=== PATIENT | female | born 1975 | race Caucasian/White ===

== ENCOUNTER → 2016-09-11 | Outpatient (CLI) | payer OTHER ==
[~2016-09-11] MED LIST: ATEN-175 PO; HYDR-5688 PO; IBUP-1450 PO; LISI40TA PO; PANT40TA PO; PENI-82 PO; RANI150T3 PO
--- NOTE | 2016-09-16 16:44 | MAMMOGRAPHY REPORT ---
THIS REPORT HAS BEEN AMENDED. BILATERAL DIGITAL SCREENING MAMMOGRAM TOMOSYNTHESIS WITH CAD: 09/11/2016 CLINICAL HISTORY: Routine screening examination. TECHNIQUE: Bilateral breast tomosynthesis in addition to standard 2D mammography was performed. Curr ent study was also evaluated with a Computer Aided Detection (CAD) system. COMPARISON: No prior exams were available for comparison. BREAST COMPOSITION: There are scattered areas of fibroglandular density in both breasts. FINDINGS: There is a 9 mm lobulated and circumscribed mass in the superior posterior right breast, only seen on the MLO view. Although this could represent a benign cyst or lymph node, comparison to prior outside mammograms would be useful to assess stability. If the outside exams are not obtaine d in a timely manner, additional spot compression tomosynthesis, exaggerated lateral CC views and po ssibly ultrasound are recommended. There are scattered benign-appearing round microcalcifications in the breasts. No other suspicious m ass, architectural distortion or cluster of microcalcifications is seen. IMPRESSION: ACR BI-RADS CATEGORY 0: INCOMPLETE EVALUATION: NEED ADDITIONAL IMAGING EVALUATION The 9 mm lobulated and circumscribed mass in the superior posterior right breast needs comparison to prior outside mammograms to assess stability. If the outside exams are not obtained in a timely ma nner, additional spot compression tomosynthesis, exaggerated lateral CC views and possibly breast ul trasound are recommended. The patient will be called to schedule an appointment. Approximately 10% of breast cancers are not detected with mammography. A negative mammographic repor t should not delay biopsy if a clinically suggestive mass is present. Julissa Flaherty M.D. ay/:09/16/2016 15:53:48 Brazer Electronic: Berta Arango RT(Epifanio)(M), [facility] letter sent: Need Priors 0 BI-RADS Code: ACR BI-RADS Category 0: Incomplete Evaluation: Need Additional Imaging Evaluation AMENDMENT: 10/09/2016 Julissa Flaherty M.D. A prior outside mammogram from [facility] in [place] dated 09/26/2015 became available for re view. The 9 mm lobulated and circumscribed mass in the superior posterior right breast, only seen o n the MLO view is new compared to the prior outside mammogram from last year. This is not clearly s een on the CC view. Additional spot compression tomosynthesis, exaggerated lateral right CC views a nd possibly ultrasound are recommended for further evaluation. No other significant interval change is seen bilaterally in the breasts. Amended BI-RADS: ACR BI-RADS Category 0: Incomplete Evaluation: Need Additional Imaging Evaluation letter sent: Addl Imaging 0
== END | disposition home or self-care (01) ==
LOC: C.MAMM 10:32
PROVIDERS: ATTEND Obstetrics & Gynecology
DX: Z12.31 Encounter for screening mammogram for malignant neoplasm of breast (principal); N63 Unspecified lump in breast

== ENCOUNTER → 2016-09-25 | Outpatient (CLI) | payer OTHER | END | disposition home or self-care (01) | LOC: C.PATHSPEC 11:58 | PROVIDERS: ATTEND Obstetrics & Gynecology | DX: R93.8 Abnormal findings on diagnostic imaging of other specified body structures (principal) ==

== ENCOUNTER → 2016-10-17 | Outpatient (CLI) | payer OTHER ==
--- NOTE | 2016-10-17 13:16 | MAMMOGRAPHY REPORT ---
UNILATERAL RIGHT DIGITAL DIAGNOSTIC MAMMOGRAM TOMOSYNTHESIS AND TARGETED RIGHT ULTRASOUND: 10/17/2016 CLINICAL HISTORY: Callback from screening mammogram for right breast asymmetry. TECHNIQUE: Breast tomosynthesis in addition to standard 2D mammography was performed. Right MLO sp ot compression to 2D and tomosynthesis images and right X CCL views were obtained. COMPARISON: Comparison is made to exams dated: 09/11/2016 mammogram - [facility] an d 09/26/2015 mammogram - [facility]. BREAST COMPOSITION: There are scattered areas of fibroglandular density in the right breast. FINDINGS: Spot compression views of the right breast demonstrate a persistent lobulated 7 mm mass s een within the right upper outer quadrant. Targeted ultrasound was performed of the right upper outer quadrant in the region of the mammographi c mass. In the right breast at 9:30, 8 cm from the nipple, there is an oval circumscribed hypoechoi c mass which measures 3 x 3 mm, with a thin linear component seen extending from the mass on the froilan e images which has the appearance of ductal extension, with the total extent of the finding measurin g 6 mm. This correlates with the mammographic mass and is probably benign and likely represents a c omplicated cyst. Incidentally noted in the right breast at 10:00, 6 cm from the nipple, is an oval anechoic benign cyst which measures 3 x 3 mm. The options of short interval follow-up versus biopsy of the right 9:30 breast mass were discussed with the patient, and we will opt for short interval f ollow-up at this time (the patient prefers three-month follow-up over the usual six-month follow-up) . IMPRESSION: ACR-BI-RADS CATEGORY 3: PROBABLY BENIGN, TARGETED ULTRASOUND ACR-BI-RADS CATEGORY 3: MS OBABLY BENIGN Hypoechoic circumscribed 3 mm mass seen within the right breast at 9:30 on ultrasound, which corresp onds with the newly visualized mammographic mass. The mass is probably benign and likely represents a complicated cyst. Recommend short interval follow-up diagnostic tomosynthesis mammograms and pos sible ultrasound of the right breast in 3 months to confirm stability. The patient has been verbally notified of the results. Approximately 10% of breast cancers are not detected with mammography. A negative mammographic repor t should not delay biopsy if a clinically suggestive mass is present. Nicky Gonsalez M.D. ah/:10/17/2016 12:12:41 Rope Laying Machine Operator: Phu Zaidi RT(R)(M), [facility] letter sent: Follow Up Recommended 3 BI-RADS Code: ACR-BI-RADS Category 3: Probably Benign Ultrasound BI-RADS: ACR-BI-RADS Category 3: P robably Benign
== END | disposition home or self-care (01) ==
LOC: C.MAMM 10:54
PROVIDERS: ATTEND Obstetrics & Gynecology
DX: N64.89 Other specified disorders of breast (principal); N63 Unspecified lump in breast

== ENCOUNTER 2017-01-03 16:05 | Emergency (ER) | payer OTHER ==
[~2017-01-03] VITALS: Ht 160 cm; Wt 97.1 kg
[2017-01-03 16:08] VITALS: Ht 160 cm; Wt 97.1 kg
[2017-01-03] MEDS ORDERED: HYDR-5688 PO (16:40)
[2017-01-03] MEDS ORDERED: PENI-82 PO (16:40)
[2017-01-03] MEDS ORDERED: IBUP-1450 PO (16:42)
[2017-01-03] MEDS ORDERED: ATEN-175 PO (16:42)
[2017-01-03] MEDS ORDERED: PANT40TA PO (16:42)
[2017-01-03] MEDS ORDERED: RANI150T3 PO (16:42)
[2017-01-03] MEDS ORDERED: LISI40TA PO (16:42)
--- NOTE | 2017-01-03 16:43 | EMERGENCY ROOM VISIT NOTE ---
ED Visit Note First contact with patient: 16:15 CHIEF COMPLAINT: Toothache HISTORY OF PRESENT ILLNESS: This 41-year-old female patient presented to the emergency department ambulatory with her with a progressive toothache on the left side for past 4 days. The patient believes it is coming from wisdom teeth and other infected teeth she is scheduled to have extracted on February 28. The pain is now steady and severe and radiates to the face. The patient does not have a dentist appointment set up with the exception of her surgery on February 28. She states the last time she saw her dentist was approximately 2 months ago. She states when surgery was set up she was not having pain that this was scheduled several months ago. They rate their pain a 10/10 and intolerable, and the ibuprofen she has been taking has not relieved the pain. Denies facial swelling, fever, chills, vomiting, but does report nausea from pain. The patient denies any discharge from the mouth. REVIEW OF SYSTEMS: A 6 system review of systems was completed with positives and pertinent negatives listed in the HPI. ALLERGIES: None MEDICATIONS: Lisinopril, atenolol, ranitidine, Protonix PMH: Hypertension, GERD SOCIAL HISTORY: Patient lives locally with her . She does admit to smoking half pack per day PHYSICAL EXAM: Vitals are noted on the nurse's note and reviewed by myself. Vital signs stable. Temperature 37.0C orally. GENERAL: 41-year-old female patient in no acute distress, nondiaphoretic, well-developed well-nourished. Patient is hesitant to talk and is moaning throughout exam. Mouth: All molars are very carious, but no swelling or erythema of the gums surrounding the teeth. No discharge or signs of an abscess. The remainder of the pharynx and tonsils are without erythema, edema, or exudate. The airway is patent. There is no facial swelling, cervical or submandibular lymphadenopathy. The patient appears uncomfortable and in pain. The patient has overall extremely poor dental hygiene. EARS: External auditory canals clear, tympanic membranes pearly kent without erythema or effusion bilaterally. HEART: RRR, no murmurs. LUNGS: Clear and equal without wheezing, rhales, or rhonchi bilaterally. ED COURSE: The patient was evaluated as outlined above. Prescriptions for antibiotics and pain medication printed and given to patient. As RN was discussing discharge instructions with patient, patient asks if she can take prescribed medication with antibiotics given to her over the phone by her dentist. Patient was instructed not to take both antibiotics. DIAGNOSIS: Odontalgia DIFFERENTIAL DIAGNOSIS: Dental caries, impaction, abscess. DISCHARGE INSTRUCTIONS & TREATMENT: PDMP referenced with no history noted. Harmon every 6 hours if needed for pain. Pen V K 500 mg t.i.d. x 10 days for infection. See a dentist as soon as possible for definitive care and try to move up surgery appointment if possible. Return sooner if shortness of breath, discharge, or change in vision and hearing occur. Current/Historical Medications Scheduled Atenolol (Tenormin), 100 MG PO DAILY Lisinopril (Zestril), 40 MG PO DAILY Pantoprazole (Protonix), 40 MG PO DAILY Penicillin V Potassium (Veetids), 500 MG PO QID Ranitidine Hcl (Zantac), 150 MG PO DAILY Scheduled PRN Hydrocodone/Acetaminophen 5MG/325MG (Harmon 5MG/325MG), 1 TABLET PO Q6H PRN for Pain Ibuprofen (Motrin), 600 MG PO Q3H PRN for Pain Allergies Coded Allergies: No Known Allergies (Unverified , 01/03/17) Vital Signs Date Time Temp Pulse Resp B/P Pulse Ox O2 Delivery O2 Flow Rate FiO2 01/03/17 16:55 37.0 82 20 147/91 97 01/03/17 16:53 82 20 147/91 97 Room Air 01/03/17 16:08 37.0 82 20 152/92 97 Room Air Departure Information Impression Primary Impression: Odontalgia Dispostion Home / Self-Care Condition GOOD Prescriptions Hydrocodone/Acetaminophen 5MG/325MG (Harmon 5MG/325MG) Tab 1 TABLET PO Q6H Y for Pain, #12 TAB For Initial Treatment Prov: Suzy Wayne PA-C 01/03/17 Penicillin V Potassium (Veetids) 500 Mg Tab 500 MG PO QID for 10 Days, #40 TAB Prov: Suzy Wayne PA-C 01/03/17 Referrals No Doctor, Assigned (PCP) Patient Instructions [facility] Additional Instructions Penicillin (Pen VK) 500mg: Take one pill four times daily for 10 days for your infection. All antibiotics can cause diarrhea. If this occurs and you feel worse or it does not resolve in 1-2 days follow up with your doctor or return to the Emergency Department as this could be signs of serious underlying problems. Any medication can cause an allergic reaction, stop the pills immediately and return to the ER for rash, hives, breathing difficulties, or swelling. You have been prescribed, to be used for pain control. This is a narcotic medication. You cannot drive or consume alcohol while on this medicine. This medicine should only be used for pain that cannot be controlled with over-the- counter pain medicines. You were prescribed Pen-V K to be taken 4 times per day. This is an antibiotic. All antibiotics have the potential to cause diarrhea. Stop this medication and contact a medical provider if you were to develop any significant adverse side effects including: wheezing, shortness of breath, passing out, vomiting, or a diffuse rash. Always take antibiotics as directed and COMPLETE the ENTIRE course regardless of the improvement of your symptoms. For pain control, you can use the following hjqw-cae-sjlgvfs medicines (if >12 yo): - Regular strength (325mg/tab) Tylenol (acetaminophen) 2 tabs every 4-6 hours as needed. Do not exceed 12 tablets in a 24 hour period. Avoid taking more than 4 grams (4000 mg) of Tylenol per day. This includes any other sources of acetaminophen, including that in the Harmon you were prescribed. - Regular strength (200 mg/tab) Advil (ibuprofen) 1-2 tabs every 4-6 hours as needed. Do not exceed a dose of 3200 mg per day. Refrain from smoking cigarettes or using chewing tobacco until you have been evaluated by your dentist. Keeping beverages lukewarm and consuming soft foods can decrease your pain. Warm compresses over the affected area may offer some relief. You MUST seek evaluation of your dental pain by a dentist following your visit to the Emergency Department. The Emergency Department is not capable of treating dental issues long-term. You should call your dentist as soon as possible to make an appointment for evaluation of your dental pain. Return to the emergency department if you develop the following symptoms despite treatment course outlined above: fever, intractable pain, increased redness, swelling, or purulent discharge.
[2017-01-03 16:55] VITALS: BP 147/91; PULSE 82; TEMP 37; O2SAT 97
== END 2017-01-03 16:56 | disposition home or self-care (01) ==
LOC: C.EDB 16:06 → C.EDD 16:56
DX: K08.89 Other specified disorders of teeth and supporting structures (principal); I10 Essential (primary) hypertension; K21.9 Gastro-esophageal reflux disease without esophagitis; F17.200 Nicotine dependence, unspecified, uncomplicated

== ENCOUNTER → 2017-01-17 | Outpatient (CLI) | payer OTHER ==
[~2017-01-17] MED LIST changes: -PENI-82 PO
--- NOTE | 2017-01-17 13:54 | MAMMOGRAPHY REPORT ---
UNILATERAL RIGHT DIGITAL DIAGNOSTIC MAMMOGRAM TOMOSYNTHESIS WITH CAD AND TARGETED RIGHT ULTRASOUND: CLINICAL HISTORY: Short interval follow-up of right breast mass. TECHNIQUE: Breast tomosynthesis in addition to standard 2D mammography was performed. Current study was also evaluated with a Computer Aided Detection (CAD) system. Right CC and MLO 2-D and tomosynthe sis images were obtained. COMPARISON: Comparison is made to exams dated: 10/17/2016 ultrasound, 10/17/2016 mammogram, 09/11/2016 [facility] mogram - [facility], and 09/26/2015 mammogram - [facility]. BREAST COMPOSITION: There are scattered areas of fibroglandular density in the right breast. FINDINGS: The previously seen round circumscribed 4 mm mass within the right upper outer quadrant po steriorly is stable compared to the October 2016 exam. The remainder of the right breast is stable jenn mographically compared to prior exams, without suspicious masses, calcifications, or areas of archite ctural distortion noted. Targeted ultrasound was performed of the area of the previously seen mass. In the right breast at 9: 30, 8 cm from the nipple, again noted is an oval hypoechoic circumscribed mass which measures 3 x 4 x 2 mm, not significantly changed compared to the prior ultrasound dated 10/27/2016. This corresponds with the stable mammographic mass and is probably benign and likely represents a cyst. Recommend ano ther short interval follow-up to confirm longer stability. IMPRESSION: ACR-BI-RADS CATEGORY 3: PROBABLY BENIGN, TARGETED ULTRASOUND ACR-BI-RADS CATEGORY 3: PRO BABLY BENIGN The circumscribed benign-appearing 3 mm mass in the right 9:30 breast is stable mammographically and sonographically compared to the October 2016 exam. The mass is probably benign and likely represents a cyst. Recommend short interval follow-up diagnostic tomosynthesis mammograms and possible ultrasoun d of the right breast in 6 months to confirm longer stability. The patient has been verbally notified of the results. Approximately 10% of breast cancers are not detected with mammography. A negative mammographic report should not delay biopsy if a clinically suggestive mass is present. Nicky Gonsalez M.D. /:01/17/2017 10:23:14 Porcelain Enamel Laborer: Nisha FLORES(Epifanio)(Dereje), [facility] letter sent: Follow Up Recommended 3 BI-RADS Code: ACR-BI-RADS Category 3: Probably Benign Ultrasound BI-RADS: ACR-BI-RADS Category 3: Pr obably Benign
== END | disposition home or self-care (01) ==
LOC: C.MAMM 09:50
PROVIDERS: ATTEND Physician Assistant
DX: N63 Unspecified lump in breast (principal)

== ENCOUNTER → 2017-07-24 | Outpatient (CLI) | payer OTHER ==
[~2017-07-24] MED LIST changes: -HYDR-5688 PO
--- NOTE | 2017-07-24 14:26 | MAMMOGRAPHY REPORT ---
UNILATERAL RIGHT DIGITAL DIAGNOSTIC MAMMOGRAM TOMOSYNTHESIS WITH CAD AND TARGETED RIGHT ULTRASOUND: 1 09/24/2016 CLINICAL HISTORY: Six-month follow-up of right breast mass. The patient reports no current complaint s. TECHNIQUE: Breast tomosynthesis in addition to standard 2D mammography was performed. Current study was also evaluated with a Computer Aided Detection (CAD) system. Right CC and MLO 2-D and tomosynthe sis images were obtained. COMPARISON: Comparison is made to exams dated: 01/17/2017 ultrasound, 10/17/2016 ultrasound, 01/17/2017 ma mmogram, 10/17/2016 mammogram, 09/11/2016 mammogram - [facility], and 09/26/2015 mammogr am - [facility]. BREAST COMPOSITION: There are scattered areas of fibroglandular density in the right breast. FINDINGS: The previously described small circumscribed subcentimeter lobulated benign appearing mass within the right upper outer quadrant posteriorly is less prominent on the MLO views compared to the prior Sep 2016 exam, favoring a benign etiology. The remainder of the right breast is stable compare d to prior exams, without suspicious masses, calcifications, or areas of architectural distortion not ed. Targeted ultrasound was performed of the area of the previously seen mammographic mass in the right 9 :30 breast, approximately 8 cm from the nipple. At this site there is an oval circumscribed anechoic cyst which measures 5 x 2 mm, not significantly changed compared to the October 2016 exam. The previo usly seen hypoechoic 4 mm mass more posteriorly which is felt to correlate with the mammographic mass is not clearly evident on the ultrasound exam. No suspicious masses are evident. IMPRESSION: ACR-BI-RADS CATEGORY 3: PROBABLY BENIGN, TARGETED ULTRASOUND ACR-BI-RADS CATEGORY 3: PRO BABLY BENIGN The circumscribed benign-appearing mass in the right upper outer quadrant is less prominent mammograp hically dating back to the September 2016 exam, and is therefore probably benign. Recommend bilateral diagnostic tomosynthesis mammograms in 4 months to reevaluate the right breast mass and for routine mammography of the left breast (routine mammograms of the left breast are due in September and ly I would recommend a 6 month follow-up of the right breast finding, therefore splitting the differe nce would be 4 months). The patient has been verbally notified of the results. Approximately 10% of breast cancers are not detected with mammography. A negative mammographic report should not delay biopsy if a clinically suggestive mass is present. Nicky Gonsalez M.D. ah/:07/24/2017 11:43:33 Prorate Clerk: Candice CHILDERS)(Dereje), [facility] letter sent: Follow Up Recommended 3 BI-RADS Code: ACR-BI-RADS Category 3: Probably Benign Ultrasound BI-RADS: ACR-BI-RADS Category 3: Pr obably Benign
== END | disposition home or self-care (01) ==
LOC: C.MAMM 09:34
PROVIDERS: ATTEND Physician Assistant
DX: R92.8 Other abnormal and inconclusive findings on diagnostic imaging of breast (principal); N63.11 Unspecified lump in the right breast, upper outer quadrant

== ENCOUNTER → 2017-08-01 | Outpatient (CLI) | payer OTHER ==
[~2017-08-01] MED LIST changes: +ATEN50TA8 PO
[2017-08-01 13:31] LABS: HEMATOCRIT 32.2 % (37-47); MEAN CELL VOLUME 75.4 fL (80-100); MEAN CORPUSCULAR HEMOGLOBIN 23.7 pg (25-34); MEAN CORPUSCULAR HGB CONC 31.4 g/dl (32-36); MEAN PLATELET VOLUME 11.1 fL (7.4-10.4); PLATELET COUNT 231 K/uL (130-400); RED BLOOD COUNT 4.27 M/uL (4.2-5.4); WHITE BLOOD COUNT 8.59 K/uL (4.8-10.8)
[2017-08-01 13:50] LABS: ALT/SGPT 22 U/L (12-78); BLOOD UREA NITROGEN 12 mg/dl (7-18); BUN/CREATININE RATIO 15.1 (10-20); CALCIUM 9.1 mg/dl (8.5-10.1); CARBON DIOXIDE 29 mmol/L (21-32); CHLORIDE 101 mmol/L (98-107); CHOLESTEROL 167 mg/dl (0-200); CREATININE 0.76 mg/dl (0.60-1.20); GLUCOSE 82 mg/dl (70-99); POTASSIUM 3.3 mmol/L (3.5-5.1); SODIUM 137 mmol/L (136-145)
[2017-08-01 14:01] LABS: ALB/GLOB RATIO 0.9 (0.9-2); ALKALINE PHOSPHATASE 58 U/L (45-117); AST/SGOT 12 U/L (15-37); CHOLESTEROL/HDL RATIO 4.1; HDL CHOLESTEROL 41 mg/dl; LDL CHOLESTEROL CALCULATED 94 mg/dl; TRIGLYCERIDES 162 mg/dl (0-150); VERY LOW DENSITY LIPOPROT CALC 32 mg/dl
== END | disposition home or self-care (01) ==
LOC: C.LABBC 10:58
PROVIDERS: ATTEND Physician Assistant Medical
DX: Z00.00 Encounter for general adult medical examination without abnormal findings (principal); I10 Essential (primary) hypertension; R92.8 Other abnormal and inconclusive findings on diagnostic imaging of breast; G43.909 Migraine, unspecified, not intractable, without status migrainosus

== ENCOUNTER 2017-08-15 09:20 | Emergency (ER) | payer OTHER ==
[~2017-08-15] VITALS: Ht 160 cm; Wt 101.9 kg
[~2017-08-15 09:20] MED LIST changes: -ATEN50TA8 PO
[2017-08-15 09:23] VITALS: TEMP 36.5; Ht 160 cm; Wt 101.9 kg
[2017-08-15] MEDS ORDERED: ATEN50TA8 PO (10:06)
[2017-08-15 10:25] LABS: HEMATOCRIT 30.4 % (37-47); HEMOGLOBIN 9.3 g/dL (12.0-16.0); MEAN CELL VOLUME 75.4 fL (80-100); MEAN CORPUSCULAR HEMOGLOBIN 23.1 pg (25-34); MEAN CORPUSCULAR HGB CONC 30.6 g/dl (32-36); MEAN PLATELET VOLUME 10.6 fL (7.4-10.4); PLATELET COUNT 189 K/uL (130-400); RED CELL DISTRIBUTION WIDTH CV 15.8 % (11.5-14.5); RED CELL DISTRIBUTION WIDTH SD 43.6 fL (36.4-46.3)
--- NOTE | 2017-08-15 10:33 | DIAGNOSTIC IMAGING REPORT ---
CHEST ONE VIEW PORTABLE HISTORY: 42 years-old Female SOB pleuritic chest pain acute shortness of breath with atypical chest pain COMPARISON: None available TECHNIQUE: Portable AP view of the chest FINDINGS: Cardiac silhouette is mildly enlarged. No pneumothorax or large pleural effusion. Patchy subsegmental bibasilar opacities are noted with blunting of the costophrenic angles. Bones of the chest appear grossly intact. IMPRESSION: Patchy subsegmental bibasilar opacities suggest atelectasis with pneumonia thought to be less likely. The above report was generated using voice recognition software. It may contain grammatical, syntax or spelling errors. Electronically signed by: Jesus Johnson M.D. 08/15/2017 10:31 AM Dictated Date/Time: 08/15/2017 10:30 AM
[2017-08-15 10:39] LABS: ALBUMIN 2.9 gm/dl (3.4-5.0); CALCIUM 8.2 mg/dl (8.5-10.1); CREATININE 0.77 mg/dl (0.60-1.20); POTASSIUM 3.7 mmol/L (3.5-5.1)
[2017-08-15 10:42] LABS: TOTAL PROTEIN 6.5 gm/dl (6.4-8.2)
--- NOTE | 2017-08-15 10:43 | EMERGENCY ROOM VISIT NOTE ---
History First contact with patient: 09:34 Chief Complaint: SHORTNESS OF BREATH Stated Complaint: SOB, STOMACH PAINS History of Present Illness The patient is a 42 year old female who presents to the Emergency Room with complaints of a 4 day history of shortness of breath and RUQ pain. She states she "feels like she has no oxygen" and that she has been unable to sleep for two nights due to difficulty breathing. She reports it feels as though she cannot get air in. She states she has had this problem since she was a teenager , and has never been diagnosed with a pulmonary disorder. She denies a history of asthma, COPD, states she has never used inhalers. She denies cough, fever, chills, n/v, but states she has felt lightheaded for the last couple of days. She is a former smoker who smoked approx 1 PPD for 20 years, and quit 5 months ago. With regards to her RUQ pain, she states it is only present on deep inspiration , and that it is a 5/10 "heavy pain". She denies a history of gallstones, but states she has "stomach issues" and is taking protonix and ranitidine that was prescribed by her PCP. Review of Systems See HPI for pertinent positives & negatives. A total of 10 systems reviewed and were otherwise negative. Past Medical/Surgical History Medical Problems: (1) HTN (hypertension) (2) Stomach problems PSH: and ovarian cyst removal Social History Smoking Status: Former Smoker Current/Historical Medications Scheduled Atenolol (Tenormin), 50 MG PO AMPM Lisinopril (Zestril), 40 MG PO DAILY Pantoprazole (Protonix), 40 MG PO DAILY Ranitidine Hcl (Zantac), 150 MG PO DAILY Scheduled PRN Ibuprofen (Motrin), 600 MG PO Q3H PRN for Pain Physical Exam Vital Signs Date Time Temp Pulse Resp B/P (MAP) Pulse Ox O2 Delivery O2 Flow Rate FiO2 08/15/17 15:44 57 18 158/84 98 08/15/17 14:18 57 18 145/82 97 Room Air 08/15/17 12:39 54 18 138/71 98 Room Air 08/15/17 10:43 97 Room Air 08/15/17 10:43 55 18 137/85 96 Room Air 08/15/17 09:23 36.5 64 20 160/93 99 Room Air Physical Exam HEENT: Head - normocephalic and atraumatic. Ears - bilaterally patent canals with noninjected tympanic membranes and no evidence of hemotympanum. Nose - moist nasal mucosa without discharge. Mouth - moist buccal mucosa. Oropharynx is nonerythematous and there is no tonsillar exudate or edema noted. Neck: Supple; no JVD, nuchal rigidity, cervical lymphadenopathy, or auscultated bruits. Heart: Regular rate and rhythm. There is a normal S1 and S2 with no murmurs, clicks, or gallops appreciated. Lungs: Clear to auscultation bilaterally with no wheezes, rales, or rhonchi. Abdomen: Soft, tender in epigastric region. Mildly tender in RUQ. Worley's sign negative.Nondistended, with good bowel sounds. There are no palpable pulsatile masses or hepatosplenomegaly. There is no guarding, rigidity, or rebound noted. Extremities: No evidence of cyanosis, clubbing, or edema. There are easily palpable peripheral pulses. Neuro:The patient is awake and alert, oriented to day, time, and place. Medical Decision & Procedures ER Provider Diagnostic Interpretation: CHEST ONE VIEW PORTABLE HISTORY: 42 years-old Female SOB pleuritic chest pain acute shortness of breath with atypical chest pain COMPARISON: None available TECHNIQUE: Portable AP view of the chest FINDINGS: Cardiac silhouette is mildly enlarged. No pneumothorax or large pleural effusion. Patchy subsegmental bibasilar opacities are noted with blunting of the costophrenic angles. Bones of the chest appear grossly intact. IMPRESSION: Patchy subsegmental bibasilar opacities suggest atelectasis with pneumonia thought to be less likely. BILIARY ABDOMEN LIMITED CLINICAL HISTORY: 42 years-old Female presenting with epigastric and RUQ pain. TECHNIQUE: Real-time grayscale and limited color Doppler ultrasound imaging of the abdomen limited to the right upper quadrant was performed. COMPARISON: None. FINDINGS: Pancreas: Visualized portions of the pancreatic head and body normal. Liver: Mildly hyperechogenic parenchyma, although the right hemidiaphragm remains visible, likely indicating mild steatosis. The liver measures 20 cm in maximal sagittal dimension. No sonographic evidence of hepatic mass. Main portal vein patent with normal directional flow. Biliary: No intrahepatic biliary ductal dilatation. Common bile duct measures up to 6 mm in diameter. Gallbladder: Decompressed. No evidence of gallstones. Right kidney: Normal in appearance. No hydronephrosis. Ascites: None. Other: Right pleural effusion. IMPRESSION: 1. Decompressed gallbladder. No cholelithiasis. 2. Hepatic steatosis. Correlate with liver function tests to exclude steatohepatitis as a cause for abdominal pain. (CHEST FOR PE) ANGIO WITH CLINICAL HISTORY: 42 years-old Female presenting with ^+dd and ruq abd pain w/ chest pain, clinical concern for pulmonary embolus. TECHNIQUE: Multidetector CT angiography of the chest was performed after administration of intravenous contrast. 3-D volumetric and/or maximum intensity projection (MIP) images were subsequently reconstructed for review. IV contrast: 94 mL of Optiray 320. A dose lowering technique was used consistent with the principles of ALARA (as low as reasonably achievable). COMPARISON: Chest x-ray from 08/15/2017. CT DOSE (mGy.cm): The estimated cumulative dose is 493.97 mGycm. FINDINGS: [employer] topogram: Unremarkable. Pulmonary vasculature: The study is adequate for assessment of the pulmonary vascular tree. No filling defect within the pulmonary arteries to suggest embolus. Main pulmonary artery is not enlarged. No flattening of the interventricular septum. No intracardiac filling defect. Reflux of contrast into the IVC and hepatic veins. Remaining chest: On soft tissue windows, normal thyroid and thoracic inlet. Multiple prominent mediastinal lymph nodes. Normal aorta. Multichamber enlargement of the heart. No pericardial effusion. Small bilateral pleural effusions. Upper abdomen normal. On lung windows, minimal dependent changes likely atelectasis. Interlobular septal thickening primarily at the lung apices. Mild diffuse groundglass density with a basilar predominance. Mild bronchial wall thickening in the lower lobes. Airways patent. On bone windows, normal osseous structures. IMPRESSION: 1. No evidence of pulmonary embolus. 2. Cardiomegaly with findings suggestive of volume overload and early pulmonary edema with small bilateral pleural effusions. 3. Reflux of contrast into the hepatic veins suggests elevated right heart pressures. ECHO * Left ventricular systolic function is normal. * Normal diastolic function * Borderline right ventricular enlargement. * Right ventricular systolic pressure is elevated at 30-40mmHg. * The inferior vena cava is mildly dilated. Laboratory Results 08/15/17 10:15 08/15/17 10:15 Test 1/5/18 10:15 Red Blood Count 4.03 M/uL (4.2-5.4) Mean Corpuscular Volume 75.4 fL (80-100) Mean Corpuscular Hemoglobin 23.1 pg (25-34) Mean Corpuscular Hemoglobin Concent 30.6 g/dl (32-36) RDW Standard Deviation 43.6 fL (36.4-46.3) RDW Coefficient of Variation 15.8 % (11.5-14.5) Mean Platelet Volume 10.6 fL (7.4-10.4) D-Dimer 1340 ug/L FEU (0-500) Anion Gap 6.0 mmol/L (3-11) Est Creatinine Clear Calc Drug Dose 109.6 ml/min Estimated GFR () 111.2 Estimated GFR (Non- 95.9 BUN/Creatinine Ratio 17.2 (10-20) Calcium Level 8.2 mg/dl (8.5-10.1) Total Bilirubin 0.3 mg/dl (0.2-1) Aspartate Amino Transf (AST/SGOT) 24 U/L (15-37) Alanine Aminotransferase (ALT/SGPT) 46 U/L (12-78) Alkaline Phosphatase 56 U/L (45-117) Troponin I < 0.015 ng/ml (0-0.045) Total Protein 6.5 gm/dl (6.4-8.2) Albumin 2.9 gm/dl (3.4-5.0) Globulin 3.6 gm/dl (2.5-4.0) Albumin/Globulin Ratio 0.8 (0.9-2) Lipase 127 U/L (73-393) Medications Administered Medications (Trade) Dose Ordered Sig/Archie Route Start Time Stop Time Status Last Admin Dose Admin Perflutren Lipid Microsphere (Definity) 2 ml ONE ONCE IV 08/15/17 14:05 08/15/17 14:07 DC 08/15/17 14:07 2 ML Furosemide 20 mg/ Syringe 2 ml @ 4 mls/min ONE ONCE IV 08/15/17 15:15 08/15/17 15:16 DC 08/15/17 15:33 4 MLS/MIN ECG Indication: SOB/dyspnea Rate (beats per minute): 47 Rhythm: sinus bradycardia Findings: no acute ischemic change, no ectopy ED Course 9:34: The patient was evaluated in room B11. A complete history and physical exam was performed. 9:50: The case was discussed with the attending, Dr. Lester. 10:39: D-dimer positive, patient sent for CT to rule out PE 11:50: Stool occult was negative. Patient was informed of Hgb of 9.3 and states she has a history of intermenstrual bleeding due to ovarian cysts. She was previously on iron supplements but stopped taking them. 12:26: CTA showed cardiomegaly and pleural effusions. Troponin ordered and Dr. Marina consulted. 13:01: ECHO ordered by Dr. Marina 15:15: 20mg IV Lasix ordered 15:29: Patient was reassessed and reports no new complaints. Her questions were answered and she was agreeable to discharge and will follow up with cardiology next . Medical Decision Etiologies such as pneumonia, reactive airway disease, cardiac ischemia, pulmonary embolism, pneumothorax, musculoskeletal, infections, biliary colic, pancreatitis as well as others were entertained. Ms. Moises Grimaldo is a 42 year old female who presented to the ED with a 4 day history of SOB and RUQ abdominal pain. Her oxygen saturations were 99% on room air despite a subjective feeling of shortness of breath. Her D-dimer was elevated at [address] to rule out PE was ordered. Her CBC showed worsening anemia, with a hemoglobin of 9.3, compared to 10.1 in 2 weeks ago. Her stool occult was negative and as per the patient, she has a history of intermenstrual bleeding resulting in iron deficiency anemia, but had stopped taking her iron supplementation. Her CMP and lipase were unremarkable. CTA showed bilateral pleural effusions and cardiomegaly. Dr. Marina was consulted and ordered an ECHO which demonstrated normal left ventricular systolic function , normal diastolic function and elevated right ventricular systolic pressure. She was given 20mg of IV Lasix. She was felt to be stable for discharge and will follow up with cardiology in the office. She was counselled on following up with her PCP regarding her abdominal pain. Impression Primary Impression: Shortness of breath Additional Impressions: Abdominal pain Anemia Departure Information Dispostion Home / Self-Care Referrals Kenia Greene P.A. (PCP) Patient Instructions My [facility] [address] Resident Tracking Resident Involvement: Resident Care Provided Care Provided: Adult ED Problem Qualifiers
[2017-08-15] MEDS ORDERED: OPTIRAY 320 IV PRN (11:15)
--- NOTE | 2017-08-15 11:48 | DIAGNOSTIC IMAGING REPORT ---
(CHEST FOR PE) ANGIO WITH CLINICAL HISTORY: 42 years-old Female presenting with ^+dd and ruq abd pain w/ chest pain, clinical concern for pulmonary embolus. TECHNIQUE: Multidetector CT angiography of the chest was performed after administration of intravenous contrast. 3-D volumetric and/or maximum intensity projection (MIP) images were subsequently reconstructed for review. IV contrast: 94 mL of Optiray 320. A dose lowering technique was used consistent with the principles of ALARA (as low as reasonably achievable). COMPARISON: Chest x-ray from 08/15/2017. CT DOSE (mGy.cm): The estimated cumulative dose is 493.97 mGycm. FINDINGS: [employer] topogram: Unremarkable. Pulmonary vasculature: The study is adequate for assessment of the pulmonary vascular tree. No filling defect within the pulmonary arteries to suggest embolus. Main pulmonary artery is not enlarged. No flattening of the interventricular septum. No intracardiac filling defect. Reflux of contrast into the IVC and hepatic veins. Remaining chest: On soft tissue windows, normal thyroid and thoracic inlet. Multiple prominent mediastinal lymph nodes. Normal aorta. Multichamber enlargement of the heart. No pericardial effusion. Small bilateral pleural effusions. Upper abdomen normal. On lung windows, minimal dependent changes likely atelectasis. Interlobular septal thickening primarily at the lung apices. Mild diffuse groundglass density with a basilar predominance. Mild bronchial wall thickening in the lower lobes. Airways patent. On bone windows, normal osseous structures. IMPRESSION: 1. No evidence of pulmonary embolus. 2. Cardiomegaly with findings suggestive of volume overload and early pulmonary edema with small bilateral pleural effusions. 3. Reflux of contrast into the hepatic veins suggests elevated right heart pressures. Electronically signed by: Gold Petit M.D. 08/15/2017 11:47 AM Dictated Date/Time: 08/15/2017 11:40 AM
--- NOTE | 2017-08-15 11:50 | DIAGNOSTIC IMAGING REPORT ---
BILIARY ABDOMEN LIMITED CLINICAL HISTORY: 42 years-old Female presenting with epigastric and RUQ pain. TECHNIQUE: Real-time grayscale and limited color Doppler ultrasound imaging of the abdomen limited to the right upper quadrant was performed. COMPARISON: None. FINDINGS: Pancreas: Visualized portions of the pancreatic head and body normal. Liver: Mildly hyperechogenic parenchyma, although the right hemidiaphragm remains visible, likely indicating mild steatosis. The liver measures 20 cm in maximal sagittal dimension. No sonographic evidence of hepatic mass. Main portal vein patent with normal directional flow. Biliary: No intrahepatic biliary ductal dilatation. Common bile duct measures up to 6 mm in diameter. Gallbladder: Decompressed. No evidence of gallstones. Right kidney: Normal in appearance. No hydronephrosis. Ascites: None. Other: Right pleural effusion. IMPRESSION: 1. Decompressed gallbladder. No cholelithiasis. 2. Hepatic steatosis. Correlate with liver function tests to exclude steatohepatitis as a cause for abdominal pain. Electronically signed by: Gold Petit M.D. 08/15/2017 11:49 AM Dictated Date/Time: 08/15/2017 11:47 AM
[2017-08-15] MEDS ORDERED: PERFLUTREN LIPID MICROSPHERE (DEFINITY) IV ONE (14:05)
[2017-08-15] MEDS ORDERED: FUROSEMIDE INJ 20 MG in SYRINGE 0 ML IV ONE (15:15)
[2017-08-15] MEDS ORDERED: FUROSEMIDE 40 MG/4 ML VIAL ONE (15:18)
--- NOTE | 2017-08-15 15:21 | ECHOCARDIOGRAM REPORT ---
*NOTICE TO RECEIVING CONSTITUTION PARTY AGENCY This information is strictly Confidential and protected under [place] law. [place] law prohibits you from making any further disclosure of this information unless further disclosure is expressly permitted by the written consent of the person to whom it pertains or is authorized by law. A general authorization for the release of medical or other information is not sufficient for this purpose. Hospital accepts no responsibility if the information is made available to any other person, INCLUDING THE PATIENT. Interpretation Summary * Name: JOLIE BRENNER Study Date: 08/15/2017 01:35 PM BP: 138/71 mmHg * Patient Location: [facility] HR: 54 * : 1975 (M/d/yyyy) Gender: Female Height: 63 in * Age: 42 yrs Ethnicity: CA Weight: 224 lb * Ordering Physician: Guanakito Marina * Referring Physician: Self, Referred * Performed By: Karina Barron RDCS * * Reason For Study: CHF * BSA: 2.0 m2 * -- Conclusions -- * Left ventricular systolic function is normal. * Normal diastolic function * Borderline right ventricular enlargement. * Right ventricular systolic pressure is elevated at 30-40mmHg. * The inferior vena cava is mildly dilated. Procedure Details * A complete two-dimensional transthoracic echocardiogram was performed (2D, M-mode, Doppler and color flow Doppler). * A contrast injection of Definity was performed to improve assessment of LV function. * Contrast was injected into an intravenous site in the right arm. * Lot # [id number] of Definity utilized for procedure. * Expiration date 1 SEP 29. * The attending nurse who injected the contrast agent was Jolynn Loja RN. Left Ventricle * The left ventricle is normal in size. * There is normal left ventricular wall thickness. * Ejection Fraction = 65-70%. * Left ventricular systolic function is normal. * Normal diastolic function * The left ventricular wall motion is normal. Right Ventricle * Borderline right ventricular enlargement. * The right ventricular systolic function is normal. * The right ventricular systolic function is normal as assessed by tricuspid annular plane systolic excursion (TAPSE) (normal >1.5 cm). Atria * The left atrial size is normal. * Right atrial size is normal. Mitral Valve * The mitral valve is grossly normal. * Significant mitral regurgitation is absent. Tricuspid Valve * The tricuspid valve is not well visualized, but is grossly normal. * There is mild tricuspid regurgitation. * Right ventricular systolic pressure is elevated at 30-40mmHg. Aortic Valve * The aortic valve is normal in structure and function. * The aortic valve is trileaflet. * No hemodynamically significant valvular aortic stenosis. * There is no significant aortic regurgitation. Great Vessels * The aortic root is normal size. Pericardium/Pleural * There is no pericardial effusion. Great Vessels * The inferior vena cava is mildly dilated. MMode 2D Measurements and Calculations IVSd 0.93 cm LVIDd 4.2 cm LVIDs 2.7 cm LVPWd 1.1 cm IVS/LVPW 0.88 FS 36.7 % EDV(Teich) 79.8 ml ESV(Teich) 26.4 ml EF(Teich) 66.9 % EDV(cubed) 75.6 ml ESV(cubed) 19.2 ml EF(cubed) 74.6 % LV mass(C)d 138.3 grams LV mass(C)dI 68.2 grams/m\S\2 SV(Teich) 53.4 ml SI(Teich) 26.3 ml/m\S\2 SV(cubed) 56.4 ml SI(cubed) 27.8 ml/m\S\2 Ao root diam 2.2 cm Ao root area 4.0 cm\S\2 ACS 1.9 cm LA dimension 3.5 cm asc Aorta Diam 2.3 cm LA/Ao 1.5 LVOT diam 1.9 cm LVOT area 2.7 cm\S\2 LVAd ap4 27.5 cm\S\2 LVLd ap4 7.2 cm EDV(MOD-sp4) 86.4 ml EDV(sp4-el) 89.2 ml LVAs ap4 14.1 cm\S\2 LVLs ap4 5.7 cm ESV(MOD-sp4) 31.0 ml ESV(sp4-el) 29.7 ml EF(MOD-sp4) 64.1 % EF(sp4-el) 66.7 % LVAd ap2 35.8 cm\S\2 LVLd ap2 8.4 cm EDV(MOD-sp2) 129.3 ml EDV(sp2-el) 129.9 ml LVAs ap2 18.3 cm\S\2 LVLs ap2 6.8 cm ESV(MOD-sp2) 43.5 ml ESV(sp2-el) 42.0 ml EF(MOD-sp2) 66.4 % EF(sp2-el) 67.7 % LVLd %diff 14.1 % EDV(MOD-bp) 112.2 ml LVLs %diff 15.8 % ESV(MOD-bp) 39.7 ml EF(MOD-bp) 64.6 % SV(MOD-sp4) 55.4 ml SI(MOD-sp4) 27.3 ml/m\S\2 SV(MOD-sp2) 85.8 ml SI(MOD-sp2) 42.3 ml/m\S\2 SV(MOD-bp) 72.5 ml SI(MOD-bp) 35.7 ml/m\S\2 SV(sp4-el) 59.5 ml SI(sp4-el) 29.3 ml/m\S\2 SV(sp2-el) 87.9 ml SI(sp2-el) 43.3 ml/m\S\2 Doppler Measurements and Calculations MV E max beatrice 101.4 cm/sec MV A max beatrice 62.6 cm/sec MV E/A 1.6 MV dec time 0.18 sec Ao V2 max 142.4 cm/sec Ao max PG 8.1 mmHg Ao max PG (full) 3.6 mmHg NADIR(V,A) 2.0 cm\S\2 NADIR(V,D) 2.0 cm\S\2 LV V1 max PG 4.5 mmHg LV V1 max 106.3 cm/sec PA V2 max 88.0 cm/sec PA max PG 3.1 mmHg PA acc slope 396.6 cm/sec\S\2 PA acc time 0.17 sec TR max beatrice 236.6 cm/sec PA pr(Accel) 1.9 mmHg
--- NOTE | 2017-08-15 15:37 | EMERGENCY ROOM VISIT NOTE ---
History Report prepared by Davion: Rosas Casillas Under the Supervision of: Dr. Wesly Lester D.O. First contact with patient: 09:34 Chief Complaint: SHORTNESS OF BREATH Stated Complaint: SOB, STOMACH PAINS History of Present Illness The patient is a 42 year old female who presents to the Emergency Room with complaints of constant RUQ abdominal pain and shortness of breath beginning 4 days ago. She currently rates her discomfort a 5/10 in severity. The patient states she had episodes of shortness of breath when she was younger. She reports she would have it off and on, but it would only last an hour or two. The patient notes this episode has lasted for four days, and she is experiencing abdominal pain as well. She states her abdominal pain increases with deep breathing. The patient reports she ate pizza yesterday, and it worsened her pain. She notes she is also lightheaded and experiencing a headache. The patient reports she has not been able to sleep for the past few nights. She notes she stopped smoking 5 months ago. The patient states she has a history of presumed GERD and HTN. She denies a history of asthma, COPD, diabetes, hyperlipidemia, and heart disease. The patient denies nausea, vomiting , chest pain, trouble eating, fevers, chills, and cough. Source of History: patient Onset: 4 days ago Position: abdomen (RUQ), other (global) Quality: other (SOB) Timing: constant Modifying Factors (Worsening): eating (pizza), breathing (deep) Associated Symptoms: + headache, No fevers, No chills, No cough, No chest pain, No nausea, No vomiting Note: Associated symptoms: lightheaded, inability to sleep Denies: trouble eating Review of Systems See HPI for pertinent positives & negatives. A total of 10 systems reviewed and were otherwise negative. Past Medical & Surgical Medical Problems: (1) HTN (hypertension) (2) Stomach problems Family History Diabetes mellitus Hypertension Kidney disease Kidney stones Social History Smoking Status: Former Smoker Alcohol Use: occasionally Marital Status: Housing Status: lives with family Occupation Status: student Current/Historical Medications Scheduled Atenolol (Tenormin), 50 MG PO AMPM Lisinopril (Zestril), 40 MG PO DAILY Pantoprazole (Protonix), 40 MG PO DAILY Ranitidine Hcl (Zantac), 150 MG PO DAILY Scheduled PRN Ibuprofen (Motrin), 600 MG PO Q3H PRN for Pain Allergies Coded Allergies: No Known Allergies (Unverified , 01/03/17) Physical Exam Vital Signs Date Time Temp Pulse Resp B/P (MAP) Pulse Ox O2 Delivery O2 Flow Rate FiO2 08/15/17 14:18 57 18 145/82 97 Room Air 08/15/17 12:39 54 18 138/71 98 Room Air 08/15/17 10:43 97 Room Air 08/15/17 10:43 55 18 137/85 96 Room Air 08/15/17 09:23 36.5 64 20 160/93 99 Room Air Physical Exam GENERAL: Sitting up in bed, alert, well appearing, well nourished, no distress, non-toxic. Talking in full sentences. EYE EXAM: normal conjunctiva. OROPHARYNX: no exudate, no erythema, lips, buccal mucosa, and tongue normal and mucous membranes are moist NECK: supple, no nuchal rigidity, no adenopathy, non-tender, no JVD LUNGS: Clear to auscultation. Normal chest wall mechanics HEART: no murmurs, S1 normal and S2 normal ABDOMEN: abdomen soft, tender to palpation in the epigastric region, normo- active bowel sounds, no masses, no rebound or guarding. RECTAL: Negative. BACK: Back is symmetrical on inspection and there is no deformity, no midline tenderness, no CVA tenderness. SKIN: no rashes and no bruising UPPER EXTREMITIES: upper extremities are grossly normal. LOWER EXTREMITIES: Faint pitting edema bilaterally NEURO EXAM: Normal sensorium, cranial nerves II-XII grossly intact, normal speech, no gross weakness of arms, no gross weakness of legs. Medical Decision & Procedures ER Provider Diagnostic Interpretation: Radiology results as stated below per my review and the radiologist's interpretation: CHEST ONE VIEW PORTABLE HISTORY: 42 years-old Female SOB pleuritic chest pain acute shortness of breath with atypical chest pain COMPARISON: None available TECHNIQUE: Portable AP view of the chest FINDINGS: Cardiac silhouette is mildly enlarged. No pneumothorax or large pleural effusion. Patchy subsegmental bibasilar opacities are noted with blunting of the costophrenic angles. Bones of the chest appear grossly intact. IMPRESSION: Patchy subsegmental bibasilar opacities suggest atelectasis with pneumonia thought to be less likely. The above report was generated using voice recognition software. It may contain grammatical, syntax or spelling errors. Electronically signed by: Jesus Johnson M.D. 08/15/2017 10:31 AM Dictated Date/Time: 08/15/2017 10:30 AM BILIARY ABDOMEN LIMITED CLINICAL HISTORY: 42 years-old Female presenting with epigastric and RUQ pain. TECHNIQUE: Real-time grayscale and limited color Doppler ultrasound imaging of the abdomen limited to the right upper quadrant was performed. COMPARISON: None. FINDINGS: Pancreas: Visualized portions of the pancreatic head and body normal. Liver: Mildly hyperechogenic parenchyma, although the right hemidiaphragm remains visible, likely indicating mild steatosis. The liver measures 20 cm in maximal sagittal dimension. No sonographic evidence of hepatic mass. Main portal vein patent with normal directional flow. Biliary: No intrahepatic biliary ductal dilatation. Common bile duct measures up to 6 mm in diameter. Gallbladder: Decompressed. No evidence of gallstones. Right kidney: Normal in appearance. No hydronephrosis. Ascites: None. Other: Right pleural effusion. IMPRESSION: 1. Decompressed gallbladder. No cholelithiasis. 2. Hepatic steatosis. Correlate with liver function tests to exclude steatohepatitis as a cause for abdominal pain. Electronically signed by: Gold Petit M.D. 08/15/2017 11:49 AM Dictated Date/Time: 08/15/2017 11:47 AM (CHEST FOR PE) ANGIO WITH CLINICAL HISTORY: 42 years-old Female presenting with ^+dd and ruq abd pain w/ chest pain, clinical concern for pulmonary embolus. TECHNIQUE: Multidetector CT angiography of the chest was performed after administration of intravenous contrast. 3-D volumetric and/or maximum intensity projection (MIP) images were subsequently reconstructed for review. IV contrast: 94 mL of Optiray 320. A dose lowering technique was used consistent with the principles of ALARA (as low as reasonably achievable). COMPARISON: Chest x-ray from 08/15/2017. CT DOSE (mGy.cm): The estimated cumulative dose is 493.97 mGycm. FINDINGS: Baggage Checker topogram: Unremarkable. Pulmonary vasculature: The study is adequate for assessment of the pulmonary vascular tree. No filling defect within the pulmonary arteries to suggest embolus. Main pulmonary artery is not enlarged. No flattening of the interventricular septum. No intracardiac filling defect. Reflux of contrast into the IVC and hepatic veins. Remaining chest: On soft tissue windows, normal thyroid and thoracic inlet. Multiple prominent mediastinal lymph nodes. Normal aorta. Multichamber enlargement of the heart. No pericardial effusion. Small bilateral pleural effusions. Upper abdomen normal. On lung windows, minimal dependent changes likely atelectasis. Interlobular septal thickening primarily at the lung apices. Mild diffuse groundglass density with a basilar predominance. Mild bronchial wall thickening in the lower lobes. Airways patent. On bone windows, normal osseous structures. IMPRESSION: 1. No evidence of pulmonary embolus. 2. Cardiomegaly with findings suggestive of volume overload and early pulmonary edema with small bilateral pleural effusions. 3. Reflux of contrast into the hepatic veins suggests elevated right heart pressures. Electronically signed by: Gold Petit M.D. 08/15/2017 11:47 AM Dictated Date/Time: 08/15/2017 11:40 AM Laboratory Results 08/15/17 10:15 08/15/17 10:15 Test 08/15/17 10:15 Red Blood Count 4.03 M/uL (4.2-5.4) Mean Corpuscular Volume 75.4 fL (80-100) Mean Corpuscular Hemoglobin 23.1 pg (25-34) Mean Corpuscular Hemoglobin Concent 30.6 g/dl (32-36) RDW Standard Deviation 43.6 fL (36.4-46.3) RDW Coefficient of Variation 15.8 % (11.5-14.5) Mean Platelet Volume 10.6 fL (7.4-10.4) D-Dimer 1340 ug/L FEU (0-500) Anion Gap 6.0 mmol/L (3-11) Est Creatinine Clear Calc Drug Dose 109.6 ml/min Estimated GFR () 111.2 Estimated GFR (Non- 95.9 BUN/Creatinine Ratio 17.2 (10-20) Calcium Level 8.2 mg/dl (8.5-10.1) Total Bilirubin 0.3 mg/dl (0.2-1) Aspartate Amino Transf (AST/SGOT) 24 U/L (15-37) Alanine Aminotransferase (ALT/SGPT) 46 U/L (12-78) Alkaline Phosphatase 56 U/L (45-117) Troponin I < 0.015 ng/ml (0-0.045) Total Protein 6.5 gm/dl (6.4-8.2) Albumin 2.9 gm/dl (3.4-5.0) Globulin 3.6 gm/dl (2.5-4.0) Albumin/Globulin Ratio 0.8 (0.9-2) Lipase 127 U/L (73-393) Laboratory results per my review. Medications Administered Medications (Trade) Dose Ordered Sig/Archie Route Start Time Stop Time Status Last Admin Dose Admin Perflutren Lipid Microsphere (Definity) 2 ml ONE ONCE IV 08/15/17 14:05 08/15/17 14:07 DC 08/15/17 14:07 2 ML ECG Indication: chest pain, SOB/dyspnea Rate (beats per minute): 47 Rhythm: sinus bradycardia (47) Findings: no ectopy, other (Normal axis) ED Course ED COURSE: Vital signs were reviewed and showed normal vitals. The patients medical record was reviewed The above diagnostic studies were performed and reviewed. ED treatments and interventions as stated above. 0941: The patient was evaluated in room B11B by the resident under my supervision. A complete history and physical examination was performed. 1005: The patient was evaluated in room B11B by me. A complete history and physical examination was performed. 1234: I reevaluated the patient. She is feeling better. The patient is waiting to get an Echo. 1257: I discussed the patient's case with Dr. Marina, Cardiology. He will perform an Echo on the patient. 1343: I reevaluated the patient, and she is having her echo performed. 1405: Ordered Perflutren Lipid Microsphere 2ml IV 1500: I spoke with Dr. Marina, Cardiology. The patient has an extremely mild RV dysfunction. She can follow up as an out patient. 1507: Upon reevaluation, the patient is resting and feeling better. I discussed my findings with the patient and she understands and agrees with the treatment plan. I also spoke with Case management to help coordinate outpatient follow up. 1515: Ordered Furosemide 20 mg/Syringe 2 ml @ 4 mls/min IV 1518: Ordered Lasix Inj 40mg .ROUTE Based on the patients age, coexisting illnesses, exam and lab findings the decision to treat as an outpatient was made. The patient remained stable while under my care. The patient appeared well at the time of discharge. Medical Decision Differential diagnoses includes but is not limited to gastritis, peptic ulcer disease, GERD, gallbladder disease, pancreatitis, small bowel obstruction, acute coronary syndrome, pericarditis, ischemic bowel, irritable bowel disease, irritable bowel syndrome, appendicitis, diverticulitis, malignancy, hernia, urinary tract infection, torsion, /ectopic (if female), perforation, trauma, infectious. Patient is a 42-year-old female who presents to ER for shortness of breath which is present for the past 4 days. She notes that this normally comes and goes over the course of several years. She also complains of pleuritic abdominal pain which is located in the epigastric region. It is worse with eating. She also admits to a chronic anemia and did recently stop taking her iron. Hemoglobin is 9.3. Rectal was negative. BMP all LFTs, bilirubin, troponin and lipase was negative. Troponin was not. The symptoms have been present greater than 8 hours. EKG was unremarkable. D-dimer was obtained and was positive. CT PE was performed which shows mild pleural effusions but no PEs. Patient was updated at bedside. Discussed with cardiology and obtained an echo. Following the echo I had a long conversation with the flight dispatcher. I do feels reasonable at the patient follow up as an outpatient. Discussed with care managers and they will help set up an outpatient appointment for cardiology. Patient was updated at bedside. She is discharged follow-up with PCP and cardiology. She was given a one-time dose of Lasix here. She is instructed decrease salt intake, elevate legs and to return for any worsening of her symptoms. I do not believe that this is ischemic with a negative troponin and unremarkable echo with the exception of a slightly enlarged RV. Pulmonary pressures were also slightly enlarged as well. The epigastric abdominal pain was reproducible. I do favor this is likely secondary to gastritis/GERD. She was discharged and instructed to start taking Pepcid over- the-counter. Discussed with Pt concerning signs and symptoms to watch out for. Pt was instructed to follow up with their PCP and discussed with the patient their option to return to the ED at anytime for persistent or worsening symptoms. The appropriate anticipatory guidance and out-patient management, including indications for return to the emergency department, were explained at length to the patient and understood. Medication Reconcilliation Current Medication List: was personally reviewed by me Blood Pressure Screening Patient's blood pressure: Normal blood pressure Blood pressure disposition: Did not require urgent referral Consults Time Called: 1234 Consulting Physician: Dr. Marina, Cardiology Returned Call: 1257 I discussed the patient's case with Dr. Marina, Cardiology. He will perform an Echo on the patient. 1500: I spoke with Dr. Marina, Cardiology. The patient has an extremely mild RV dysfunction. She can follow up as an out patient. Impression Primary Impression: CHF (congestive heart failure) Additional Impressions: Epigastric abdominal pain Anemia Scribe Attestation The scribe's documentation has been prepared under my direction and personally reviewed by me in its entirety. I confirm that the note above accurately reflects all work, treatment, procedures, and medical decision making performed by me. Departure Information Dispostion Home / Self-Care Referrals Guanakito Marina MD Mattern, Joy C.,P.A. Forms HOME CARE DOCUMENTATION FORM, IMPORTANT VISIT INFORMATION Patient Instructions Abdominal Pain - [facility], ED CHF General, [facility] Additional Instructions Please follow up with your primary care doctor with in the next 24 hours. Any worsening of your symptoms, please return to the ED immediately. This includes any fevers greater than 100.4, worsening pain, chest pain, shortness breath, persistent nausea, vomiting, unable to eat or drink, or any other concerning signs or symptoms from your standpoint. Please try to refrain from large intakes of salt. Please keep your legs elevated at all times. You may also benefit from compression stockings on bilateral lower extremities. Please restart your iron as you have an anemia which is slightly worsening Please make sure that he follow up with cardiology within the next week. Please take Pepcid [id number] 20 mg daily to help with epigastric abdominal pain. Problem Qualifiers Primary Impression: CHF (congestive heart failure) Congestive heart failure type: unspecified congestive heart failure type Congestive heart failure chronicity: unspecified congestive heart failure chronicity Qualified Codes: I50.9 - Heart failure, unspecified Additional Impressions: Anemia Anemia type: unspecified type Qualified Codes: D64.9 - Anemia, unspecified
[2017-08-15 15:44] VITALS: BP 158/84; PULSE 57; O2SAT 98
== END 2017-08-15 15:46 | disposition home or self-care (01) ==
LOC: C.EDB 09:22
DX: I50.9 Heart failure, unspecified (principal); R10.13 Epigastric pain; D64.9 Anemia, unspecified; R42 Dizziness and giddiness; I11.0 Hypertensive heart disease with heart failure; J90 Pleural effusion, not elsewhere classified; I51.7 Cardiomegaly; Z87.891 Personal history of nicotine dependence; Z83.3 Family history of diabetes mellitus; Z84.1 Family history of disorders of kidney and ureter

== ENCOUNTER → 2017-08-18 | Outpatient (CLI) | payer OTHER ==
[~2017-08-18] MED LIST changes: -ATEN-175 PO; +ATEN50TA8 PO
--- NOTE | 2017-08-18 11:45 | DIAGNOSTIC IMAGING REPORT ---
CHEST 2 VIEWS ROUTINE CLINICAL HISTORY: I50.9 Heart [id number] congestive failure COMPARISON STUDY: 08/15/2017 FINDINGS: No change in the minimal patchy parenchymal infiltrate left base. Slight plantar lateral cross paradise angles bilaterally unchanged. Mild stable cardiomegaly. IMPRESSION: Small unchanged parenchymal infiltrate left base. Trace pleural effusion both lung bases. No major change from the prior study. The above report was generated using voice recognition software. It may contain grammatical, syntax or spelling errors. Electronically signed by: Terell De Los Santos M.D. 08/18/2017 11:43 AM Dictated Date/Time: 08/18/2017 11:42 AM
[2017-08-18 14:14] LABS: BLOOD UREA NITROGEN 10 mg/dl (7-18); CALCIUM 8.5 mg/dl (8.5-10.1); CARBON DIOXIDE 26 mmol/L (21-32); CREATININE 0.79 mg/dl (0.60-1.20); GLUCOSE 91 mg/dl (70-99); POTASSIUM 3.9 mmol/L (3.5-5.1); SODIUM 138 mmol/L (136-145)
[2017-08-18 14:19] LABS: TRANSFERRIN 367 mg/dl (200-360)
== END | disposition home or self-care (01) ==
LOC: C.RADBC 11:08
PROVIDERS: ATTEND Physician Assistant Medical
DX: I50.9 Heart failure, unspecified (principal); D64.9 Anemia, unspecified; R06.00 Dyspnea, unspecified; R91.8 Other nonspecific abnormal finding of lung field; J90 Pleural effusion, not elsewhere classified

== ENCOUNTER → 2017-08-21 | Outpatient (CLI) | payer OTHER ==
[2017-08-21 12:21] LABS: BASO % 1.3 %; BASO ABS # 0.11 K/uL (0-0.2); EOS % 2.5 %; EOS ABS # 0.21 K/uL (0-0.5); HEMATOCRIT 34.4 % (37-47); HEMOGLOBIN 10.4 g/dL (12.0-16.0); IG# 0.03 K/uL (0.00-0.02); LYMPH % 36.2 %; LYMPH ABS # 3.08 K/uL (1.2-3.4); MEAN CELL VOLUME 75.3 fL (80-100); MEAN CORPUSCULAR HEMOGLOBIN 22.8 pg (25-34); MEAN CORPUSCULAR HGB CONC 30.2 g/dl (32-36); MEAN PLATELET VOLUME 10.6 fL (7.4-10.4); MONO % 4.8 %; MONO ABS # 0.41 K/uL (0.11-0.59); NEUT % 54.8 %; NEUT ABS # 4.68 K/uL (1.4-6.5); PLATELET COUNT 212 K/uL (130-400); RED CELL DISTRIBUTION WIDTH CV 15.6 % (11.5-14.5); RED CELL DISTRIBUTION WIDTH SD 42.4 fL (36.4-46.3); WHITE BLOOD COUNT 8.52 K/uL (4.8-10.8)
--- NOTE | 2017-08-29 08:06 | CODING QUERY NO DIAGNOSIS ---
: 1975 TREATMENT RENDERED WITHOUT A DIAGNOSIS To promote full compliance with coding requirements relating to patient care, physician participation is requested in all cases of certified coder uncertainty. Please assist us with providing a diagnosis/symptom for the test(s) below: A diagnosis/symptom was not documented on your Order. A valid diagnosis/symptom is required to bill all insurances. Please remember that we are unable to code a diagnosis of rule out, probable, possible, questionable, or suspected. Tests that require a diagnosis: DOS: 08/21/17 * CBC WITH AUTO DIFFERENTIAL DIAGNOSIS: Provider Signature: Date: Thank you Verito Garcia Health Information Management Once completed, please kindly fax back to [phone] For questions please call [phone]
== END | disposition home or self-care (01) ==
LOC: C.LAB1850 10:45
PROVIDERS: ATTEND Physician Assistant Medical
DX: Z01.89 Encounter for other specified special examinations (principal)

== ENCOUNTER → 2017-08-31 | Outpatient (CLI) | payer OTHER ==
--- NOTE | 2017-09-01 05:52 | PAP/PSG TECHNICIAN REPORT ---
[facility] Computer Forensics Examiner Polysomnogram Report Study name: None Report date: 09/01/2017 Study date: 08/31/2017 Referring Physician: Kenia Greene PA-C Name: JOLIE BRENNER Interpreting Physician: Derek Marcelino M.D. Date of : 1975 Computer Forensics Examiner: LEELEE Guardado. Sex: Female Age: 42 StudyType: PSG Weight: 222 lbs Height: 42 years, Height 5' 3" BMI: 39.32 Medications: Pantoprazole Sodium 40 mg, Ranitidine 150 mg, Ibuprofen 600 mg, Atenolol 50 mg, Lisinopril 20 mg Patient History 42 yr. old female here for a diagnostic sleep study. Patient complains of loud snoring and EDS. Patient had a history of right sided heart failure causing pleural effusions, elevated right ventricular systolic pressure, and lower extremity edema. ESS 07/04 Parameters Monitored NPSG: E1-M2, E2-M1, Fp1-M2, Fp2-M1, F3-M2, F4-M2, F4-M1, C3-M2, C4-M2, C4-M1, O1-M2, O2-M2, O2-M1, T3-M2, T4-M1, P3-M2, P4-M1, CHIN1, CHIN2, HR, EKG, Legs, PFLOW, SNOR, FLOW, CFLOW, Tidal Volume, THOR, ABDO, SpO2, PLTH, CPRESS, ETCO2 Wave, ETCO2, pH Sleep Architecture Sleep Stages Time at Lights Off 10:29:48 PM STAGES Time (min.) TST (%) Time at Lights On 5:37:48 AM Wake 44.5 -- Total Recording Time (TRT) 428.50 min. N1 11.5 3 Total Sleep Period (TSP) 391.0 min. N2 224.0 58 Total Sleep Time (TST) 383.5min. N3 64.0 17 Awake Time 44.5 min. REM 84.0 22 Wake after Sleep Onset 7.5 min. Sleep Efficiency (SE) 90 % Sleep Onset Latency (AZALIA) 37.0 min. Number of Stage 1 Shifts None Awakenings 11 Stage Changes 62 Number of REM periods 8 REM 84.0 22 REM Latency 50.5 min. NREM 299.5 78 Body Position Analysis Supine Right Left Side Prone Vertical Total Sleep Time (min.) 176.8 151.5 90.1 241.60 0.0 0.0 Total Sleep Time (%) 37% 39% 24% 63 0% N/A% Total Sleep Time REM (min.) 56.0 8.0 20.0 None 0.0 0.0 Total Sleep Time NREM (min.) 85.9 143.5 70.1 None 0.0 0.0 Intermittent Wake (min.) 34.9 3.4 6.2 None 0.0 0.0 Total Sleep Period (%) 37% None None None None None Arousals Myoclonus (PLM) * Events Count Index Events Count Index Spontaneous 6 1 Events Awake (PLMW) 55 74.2 Respiratory 1 0.2 Events Asleep w/ Arousal (PLMA) 13 2.0 PLM 13 2 Events Asleep w/o Arousal (PLMS) 37 5.8 Snoring 9 1 Total Asleep 50 7.8 Total 29 5 Total 105 15 Respiratory Analysis * CA OA MA CH H RERA Total Count 0 0 0 0 36 1 36 Index 0.0 0.0 0.0 0 5.6 0 5.8 Mean Duration 0.0 0.0 0.0 0.00 22.3 24.2 22.3 Longest Duration 0.0 0.0 0.0 0.00 0.0 24.2 59.1 Respiratory Event Summary Total Supine ~Supine Right Left Prone REM NREM Apneas Count 0 0 0 0 0 N/A 0 0 Index 0.0 0 0 0.0 0.0 N/A 0 0 Hypopneas (4% Desat) Count 36 24 12 5 7 N/A 31 5 Index 5.6 10.1 3 2.0 4.7 N/A 22.1 1.0 Apneas & All Hypopneas Count 36 24 12 5 7 N/A 31 5 Index 5.6 10 3 2 5 N/A 22.1 1.0 Respiratory Events (P[employer]inder [employer]ender+All Hyp+RERA) Count 36 25 12 5 7 N/A 31 5 Index 5.8 11 3 2.0 4.7 N/A 22.9 1.0 Respiratory Related Arousal Count 1 25 0 0 0 N/A 1 0 Index 0.2 0 0 0 0 N/A 1 0 Snoring Analysis Supine Right Left Prone REM NREM Total Snore duration 8.0 min Snores count 236 190 1 N/A 212 215 427 Snore mean duration 1.1 Sec Snores index 100 75 1 N/A 151.4 43.1 66.8 TST with snoring (%) 2.1% Desaturation Event Summary: Minimum %SpO2 Event Count Mean/Min/Max Duration(sec.) Desaturation Index % Time In Bed > 90 48 30.0 / 8.5 / 60.0 7.0 96.9 86 - 90 4 17.7 / 15.0 / 22.3 18.4 3.1 81 - 85 0 N/A 0.0 0.1 76 - 80 0 N/A 0.0 0.0 71 - 75 0 N/A 0.0 0.0 66 - 70 0 N/A 0.0 0.0 61 - 65 0 N/A 0.0 0.0 56 - 60 0 N/A 0.0 0.0 51 - 55 0 N/A 0.0 0.0 < 50 0 N/A 0.0 0.0 Total REM NREM Awake <50% 0.0 min. 0.0 min. 0.0 min. 0.0 min. 51 - 60% 0.0 min. 0.0 min. 0.0 min. 0.0 min. 61 - 70% 0.0 min. 0.0 min. 0.0 min. 0.0 min. 71 - 80% 0.0 min. 0.0 min. 0.0 min. 0.0 min. 81 - 90% 13.3 min. 12.1 min. 0.9 min. 0.3 min. 91 - 100% 412.3 min. 71.9 min. 298.6 min. 41.8 min. Average 95 93 95 98 Minimum SpO2 82 82 88 88 Desaturation Event Index 6.7 26.4 1.6 4.0 # Desat. Events below 89% 15 12 2 1 Time(%) with Saturation below 89% 0.7 0.6 0.1 0.0 Time(min.) with Saturation below 89% 2.9 2.6 0.2 0.0 Time (mins) REM (mins) NREM (mins) % of TST SpO2 Below 90% 28 25 N3 1.9 SpO2 Below 88% 6 0 0 0 Heart Rate Analysis Min (bpm) Max (bpm) Average (bpm) Awake 62 127 74 NREM 57 87 68 REM 55 86 70 Overall 55 87 68 Supplemental O2 Values Minimum O2 level: None Value Start Time End Time Computer Forensics Examiner Comments MS. Moises Grimaldo slept in the right, left, and supine positions. No cardiac arrhythmia or PLMs noted. No bruxism noted. Snoring was noted and scored as a 2 on a scale of 0 through 5. (0=no snoring, 5=snoring loud enough to be heard through a closed door or down the barraza way) MS. Moises Grimaldo did not wake to use the restroom during the night. MS. Moises Grimaldo stated, I woke up a lot. The final report will be interpreted and signed by a sleep physician. The completed physician report will then be placed in the patient medical record. Therapy (cm H2O) 0 TIB (min.) 428.0 TST (min.) 383.5 Sleep Onset (min.) 37.0 REM Onset From Sleep (min.) 50.5 Sleep Efficiency % 90 Wakefulness (%) 10 Wakefulness (min.) 44.5 NREM 1 (%) 3 NREM 1 (min.) 11.5 NREM 2 (%) 58 NREM 2 (min.) 224.0 NREM 3 (%) 17 NREM 3 (min.) 64.0 REM (%) 22 REM (min.) 84.0 # Arousals 29 Arousal Index 5 # Snore 427 Snore Index 66.8 AHI 5.6 AHI Supine 10 AHI Non-Supine 3 NREM AHI 1.0 REM AHI 22.1 RDI 5.8 # Obstructive Apnea 0 # Central Apnea 0 # Mixed Apnea 0 # Hypopneas 36 RERAs 1 Total Respiratory Events 38 Time Below SpO2 89% (min.) 2.8 Mean NREM SpO2 (%) 95 Mean REM SpO2 (%) 93 Mean Sleep SpO2 (%) 95 Min NREM SpO2 (%) 88 Min REM SpO2 (%) 82 Position Supine (min.) 176.8 Position Non-supine (min.) 241.6 LM Index Sleep 7.8 LM Index NREM 9.2 LM Index REM 2.9 Mean Heart Rate (bpm) 68 Min Heart Rate (bpm) 55
== END | disposition home or self-care (01) ==
LOC: C.NEUR 20:00
PROVIDERS: ATTEND Physician Assistant Medical
DX: G47.10 Hypersomnia, unspecified (principal); R06.83 Snoring; I50.9 Heart failure, unspecified; Z68.41 Body mass index [BMI] 40.0-44.9, adult; R06.00 Dyspnea, unspecified

== ENCOUNTER → 2017-09-02 | Outpatient (CLI) | payer OTHER ==
[2017-09-02 15:16] LABS: HEMOGLOBIN 11.3 g/dL (12.0-16.0); MEAN CELL VOLUME 76.1 fL (80-100); MEAN CORPUSCULAR HEMOGLOBIN 23.3 pg (25-34); MEAN CORPUSCULAR HGB CONC 30.5 g/dl (32-36); MEAN PLATELET VOLUME 11.1 fL (7.4-10.4); PLATELET COUNT 245 K/uL (130-400); RED CELL DISTRIBUTION WIDTH CV 16.8 % (11.5-14.5); RED CELL DISTRIBUTION WIDTH SD 45.9 fL (36.4-46.3); WHITE BLOOD COUNT 8.32 K/uL (4.8-10.8)
[2017-09-02 15:40] LABS: BLOOD UREA NITROGEN 10 mg/dl (7-18); CALCIUM 8.9 mg/dl (8.5-10.1); CARBON DIOXIDE 28 mmol/L (21-32); GLUCOSE 81 mg/dl (70-99); POTASSIUM 3.7 mmol/L (3.5-5.1); SODIUM 136 mmol/L (136-145)
--- NOTE | 2017-09-03 15:02 | POLYSOMNOGRAPH REPORT ---
CLINICAL DATA: A 42-year-old female with BMI of 39.3 referred Kenia Greene PA-C for diagnostic study. She has loud snoring and excessive daytime sleepiness, and a history of right-sided heart failure, and lower extremity edema. SLEEP ARCHITECTURE: Total sleep period was 391 minutes. Total sleep time was 383.5 minutes divided between 299.5 minutes of non-REM sleep and 84 minutes of REM sleep. Sleep latency was delayed at 37 minutes. REM latency was 50.5 minutes. Sleep efficiency was 90%. Wake after sleep onset was 7.5 minutes. Sleep consisted of stage N1 3%, stage N2 58, stage N3 17%, and REM 22%. AROUSAL DATA: Twenty nine arousals were recorded for an index of 5 per hour. PERIODIC LIMB MOVEMENT DATA: Fifty limb movements during sleep were noted for an index of 7.8 per hour with arousal index of 2 per hour. RESPIRATORY DATA: Mild sleep apnea was documented. The AHI was 5.6. The RDI was 5.8. There were 36 hypopneic episodes with the mean duration of 22 seconds. There was 1 RERA of 24.2 seconds in duration. OXIMETRY DATA: Mild nocturnal hypoxemia was seen. Oxygen harrison was 82% during REM. Mean saturation was 95%. Time below 88% was 6 minutes. ECHOCARDIOGRAM: Heart rates ranged from 57-87 beats per minute. No arrhythmias were noted. SYSTEM SAFETY ENGINEER'S COMMENTS: The patient slept in the right, left, and supine positions. Snoring was mild rated 2 on a scale of 1-5. IMPRESSION: Mild sleep apnea/hypopnea with an apnea/hypopnea index of 5.6 and a respiratory disturbance index of 5.8 with mild nocturnal hypoxemia. RECOMMENDATIONS: The patient could be considered for a repeat sleep study with CPAP, use of an oral appliance, or use of oxygen. Clinical correlation is needed.
== END | disposition home or self-care (01) ==
LOC: C.LAB1850 14:24
PROVIDERS: ATTEND Physician Assistant Medical
DX: D64.9 Anemia, unspecified (principal)

== ENCOUNTER → 2017-09-15 | Outpatient (CLI) | payer OTHER ==
--- NOTE | 2017-09-15 17:14 | DIAGNOSTIC IMAGING REPORT ---
CHEST 2 VIEWS ROUTINE CLINICAL HISTORY: PNEUMONIA COMPARISON STUDY: 08/18/2017 FINDINGS: The cardiac and mediastinal contours are normal. There is no evidence of focal pulmonary consolidation. There is no evidence of failure. There is been resolution of the previous identified small bilateral pleural effusions. IMPRESSION: No active disease in the chest. Electronically signed by: Jasvir Perez M.D. 09/15/2017 5:12 PM Dictated Date/Time: 09/15/2017 5:12 PM
== END | disposition home or self-care (01) ==
LOC: C.RADBC 16:37
PROVIDERS: ATTEND Physician Assistant Medical
DX: J18.9 Pneumonia, unspecified organism (principal)

== ENCOUNTER → 2017-09-19 | Outpatient (CLI) | payer OTHER ==
[2017-09-19 16:49] LABS: HEMATOCRIT 36.3 % (37-47); HEMOGLOBIN 11.2 g/dL (12.0-16.0); MEAN CELL VOLUME 76.4 fL (80-100); MEAN CORPUSCULAR HEMOGLOBIN 23.6 pg (25-34); MEAN CORPUSCULAR HGB CONC 30.9 g/dl (32-36); MEAN PLATELET VOLUME 10.7 fL (7.4-10.4); PLATELET COUNT 179 K/uL (130-400); RED CELL DISTRIBUTION WIDTH SD 50.4 fL (36.4-46.3); WHITE BLOOD COUNT 10.19 K/uL (4.8-10.8)
[2017-09-19 17:16] LABS: BLOOD UREA NITROGEN 13 mg/dl (7-18); CALCIUM 8.7 mg/dl (8.5-10.1); CARBON DIOXIDE 29 mmol/L (21-32); CREATININE 0.77 mg/dl (0.60-1.20); GLUCOSE 71 mg/dl (70-99); POTASSIUM 3.4 mmol/L (3.5-5.1); SODIUM 136 mmol/L (136-145)
== END | disposition home or self-care (01) ==
LOC: C.LABBC 12:46
PROVIDERS: ATTEND Physician Assistant Medical
DX: I10 Essential (primary) hypertension (principal); D64.9 Anemia, unspecified; R06.00 Dyspnea, unspecified

== ENCOUNTER → 2017-10-01 | Outpatient (CLI) | payer OTHER ==
[2017-10-01 14:18] LABS: BLOOD UREA NITROGEN 16 mg/dl (7-18); CREATININE 0.95 mg/dl (0.60-1.20); GLUCOSE 103 mg/dl (70-99)
[2017-10-01 14:19] LABS: CARBON DIOXIDE 26 mmol/L (21-32); POTASSIUM 3.6 mmol/L (3.5-5.1); SODIUM 136 mmol/L (136-145)
== END | disposition home or self-care (01) ==
LOC: C.LABBC 11:58
PROVIDERS: ATTEND Physician Assistant Medical
DX: I10 Essential (primary) hypertension (principal); D64.9 Anemia, unspecified; L30.9 Dermatitis, unspecified

== ENCOUNTER 2021-12-28 16:57 | Observation (INO) ==
[2021-12-28] MEDS ORDERED: SODIUM CHLORIDE 0.9% 1000ML 1,000 ML IV ONE (17:28)
[2021-12-28] MEDS ORDERED: MoRPHine SULFATE 10 MG/ML CARP/VIAL IV STA (17:28)
[2021-12-28] MEDS ORDERED: ONDANSETRON INJ 2 MG/ML 2 ML VIAL IV STA (17:28)
--- NOTE | 2021-12-28 18:05 | Emergency Department Note ---
History of Present Illness General Chief complaint: Abdominal Pain Stated complaint: ABDOMINAL PAIN, REF BY Time Seen by Provider: 12/28/21 17:06 Source: patient Mode of arrival: ambulatory Limitations: no limitations History of Present Illness Maximum Pain Intensity: 9 This patient is a 46-year-old female who presents to the emergency department for evaluation of uncontrolled abdominal pain. Patient states that she was seen here a few days ago and diagnosed with pancreatitis. She was sent home to do a clear liquid diet and had pain medication at home. She states she is still not feeling better. She followed up with her primary care provider today and states that she was told she never should have been sent home and needed to come back to be admitted. She states pain is primarily in the left upper quadrant at this time. She denies nausea or vomiting. She does report that she has not had a bowel movement in a few days and did try an enema without relief. She denies any fever/chills. She denies excessive alcohol use. Home Medications Medication Instructions Recorded Confirmed Type atenolol 50 mg tablet 50 mg PO BID 12/25/21 12/28/21 History docusate sodium 100 mg capsule 100 mg PO BID 12/25/21 12/28/21 History famotidine 40 mg tablet 40 mg PO HS 12/25/21 12/28/21 History ferrous sulfate 325 mg (65 mg 325 mg PO QAM 12/25/21 12/28/21 History iron) tablet hydralazine 25 mg tablet 25 mg PO BID 12/25/21 12/28/21 History lisinopril 20 mg tablet 20 mg PO BID 12/25/21 12/28/21 History oxycodone 5 mg tablet 5 mg PO Q6H PRN #15 tab 12/25/21 12/28/21 Rx pantoprazole 40 mg tablet,delayed 40 mg PO QAM 12/25/21 12/28/21 History release torsemide 20 mg tablet 20 mg PO QAM 12/25/21 12/28/21 History potassium chloride 20 mEq 20 meq PO DAILY 12/28/21 12/28/21 History tablet,extended release(part/cryst) (Klor-Con M) sodium phosphates 19 gram-7 118 ml CA DAILY PRN 12/28/21 12/28/21 History gram/118 mL enema (Fleet Enema) Allergies Allergy/AdvReac Type Severity Reaction Status Date / Time No Known Allergies Allergy Unverified 12/28/21 19:33 Past Med/Surg History Medical History (Updated 12/28/21 @ 21:55 by Radha Andino PA-C) HTN (hypertension) Obesity Pulmonary hypertension Surgical History No significant past surgical history Family History (Updated 12/28/21 @ 20:45 by Ann Rodriguez PA-C) Mother Diabetes Brother Hypertension Father Hypertension Grandfather (Maternal) Coronary heart disease Social History (Updated 12/28/21 @ 20:00 by Ann Rodriguez PA-C) Smoking Status: Current some day smoker Cigarettes Per Day: 7; Hx Alcohol Use: Yes (2-3) Alcohol type: hard liquor Alcohol Intake Frequency Comment: once a week Hx Substance Use: No Preferred Language: Chinese Communication Ability: Effective Sensor Operator Required: No Beliefs That Will Affect Care: None Current Living Situation: Spouse Feels Safe at Home: Yes Assistive Devices: None Review of Systems A total of 10 systems reviewed and were otherwise negative Physical Exam Vital Signs Vital Signs - 24 hr 12/28/21 16:58 12/28/21 17:29 12/28/21 18:05 Temperature 36.2 C L Temperature Source Temporal Artery Scan Pulse Rate 77 Pulse Rate [Left Finger] 78 Pulse Rhythm Regular Pulse Rhythm [Left Finger] Regular Pulse Strength Normal Pulse Strength [Left Finger] Normal Respiratory Rate 16 20 Respiratory Effort / Characteristics Non-Labored Non-Labored Spontaneous Respiratory Depth Normal Normal Respiratory Pattern Regular Blood Pressure 145/93 H Blood Pressure [Right Arm] 117/80 Blood Pressure Mean 110 Blood Pressure Mean [Right Arm] 92 Blood Pressure Position [Right Arm] Sitting Pulse Oximetry 97 97 96 Oxygen Delivery Method Room Air Room Air Sepsis Recent Fever Within 48 Hours No Sepsis New/Unexplained Change in Mental Status No Sepsis Action Taken by Nursing No Action Required 12/28/21 20:00 Temperature Temperature Source Pulse Rate Pulse Rate [Left Finger] 79 Pulse Rhythm Pulse Rhythm [Left Finger] Pulse Strength Pulse Strength [Left Finger] Respiratory Rate 16 Respiratory Effort / Characteristics Respiratory Depth Respiratory Pattern Blood Pressure Blood Pressure [Right Arm] 143/79 H Blood Pressure Mean Blood Pressure Mean [Right Arm] 100 Blood Pressure Position [Right Arm] Pulse Oximetry 98 Oxygen Delivery Method Room Air Sepsis Recent Fever Within 48 Hours Sepsis New/Unexplained Change in Mental Status Sepsis Action Taken by Nursing VITALS: Vitals are noted on the nurse's note and reviewed by myself. GENERAL: This is a 46-year-old female, in no acute distress, well-developed well-nourished. SKIN: The skin was without rashes. EYES: Pupils equal round and reactive to light and accommodation. MOUTH: Mucous membranes moist. NECK: Supple without nuchal rigidity. No lymphadenopathy. HEART: Regular rate and rhythm without murmurs gallops or rubs. LUNGS: Clear to auscultation bilaterally without wheezes, rales or rhonchi. ABDOMEN: Positive bowel sounds x 4. Soft, tenderness in the left upper quadrant and left mid abdomen. No guarding or rebound tenderness. NEURO: Patient was alert and oriented to person place and time. Course Administered Medications Discontinued Medications Sodium Chloride (Nss 1000ml) 1,000 mls @ 999 mls/hr IV .Q1H1M ONE Stop: 12/28/21 18:28 Last Infusion: 12/28/21 19:09 Dose: 0 mls/hr Documented by: [id number] Admin: 12/28/21 18:02 Dose: 999 mls/hr Documented by: [id number] Thiamine HCl 100 mg/ Syringe 10 mls @ 2 mls/min IV NOW STA Stop: 12/28/21 19:33 Last Admin: 12/28/21 20:40 Dose: 2 mls/min Documented by: [id number] Morphine Sulfate (Morphine Sulfate 10 Mg/Ml Carp/Vial) 6 mg IV NOW STA Stop: 12/28/21 17:29 Last Admin: 12/28/21 18:02 Dose: 6 mg Documented by: [id number] Ondansetron HCl (Ondansetron Inj 2 Mg/Ml 2 Ml Vial) 4 mg IV NOW STA Stop: 12/28/21 17:29 Last Admin: 12/28/21 18:02 Dose: 4 mg Documented by: [id number] Potassium Chloride (Potassium Chloride Crtab 20 Meq Tabcr) 40 meq PO NOW STA Stop: 12/28/21 19:30 Last Admin: 12/28/21 20:40 Dose: 40 meq Documented by: [id number] Medical Decision Making Differential Diagnosis Appendicitis, ovarian cyst, ovarian torsion, ectopic , TOA, PID, infections, diverticulitis, UTI, obstruction, mesenteric ischemia, aortic pathology, inflammatory bowel disease, renal colic, PUD, pancreatitis, biliary pathology, hernia, volvulus, constipation, as well as other pathologies. Home Medications Current Medication List: was personally reviewed by me Laboratory Data Attestation: I reviewed the patient's lab results. Result diagrams: 12/28/21 17:50 12/28/21 17:50 Lab Results 12/28/21 12/28/21 12/28/21 Range/Units 17:50 17:50 17:50 WBC 10.62 (4.8-10.8) K/uL RBC 4.52 (4.2-5.4) M/uL Hgb 12.0 (12.0-16.0) g/dL Hct 37.8 (37-47) % MCV 83.6 (80-100) fL MCH 26.5 (25-34) pg MCHC 31.7 L (32-36) g/dL RDW Std Deviation 46.4 H (36.4-46.3) fL RDW Coeff of Tomas 15.1 H (11.5-14.5) % Plt Count 221 (130-400) K/uL MPV 10.6 H (7.4-10.4) fL Immature Gran % (Auto) 0.2 % Neut % (Auto) 68.5 % Lymph % (Auto) 22.5 % Sherman % (Auto) 7.0 % Eos % (Auto) 1.3 % Baso % (Auto) 0.5 % Neut # (Auto) 7.28 H (1.4-6.5) K/uL Lymph # (Auto) 2.39 (1.2-3.4) K/uL Sherman # (Auto) 0.74 H (0.11-0.59) K/uL Eos # (Auto) 0.14 (0-0.5) K/uL Baso # (Auto) 0.05 (0-0.2) K/uL Immature Gran # (Auto) 0.02 (0.00-0.02) K/uL Sodium 139 (136-145) mmol/L Potassium 3.4 L (3.5-5.1) mmol/L Chloride 103 (98-107) mmol/L Carbon Dioxide 29 (21-32) mmol/L Anion Gap 7 (3-11) BUN 6 (6-23) mg/dl Creatinine 0.85 (0.6-1.2) mg/dl Est Cr Clr Drug Dosing Not Reportable Est GFR ( Amer) 95.9 ml/min Est GFR (Non-Af Amer) 82.8 ml/min BUN/Creatinine Ratio 7.1 L (10-20) Glucose 63 L (70-99(Fasting)) mg/dl POC Glucose (70-99) mg/dl Calcium 9.5 (8.5-10.1) mg/dl Magnesium (1.7-2.4) mg/dl Total Bilirubin 0.3 (0.2-1.0) mg/dl AST 11 L (13-39) U/L ALT 10 (7-52) U/L Alkaline Phosphatase 49 (34-104) U/L Total Protein 7.4 (6.0-8.3) gm/dl Albumin 4.1 (3.4-5.0) gm/dl Globulin 3.3 (2.5-4.0) gm/dl Albumin/Globulin Ratio 1.2 (0.9-2) Triglycerides 128 (0-150) mg/dl Lipase 767 H (11-82) U/L Urine Color Urine Appearance (Clear) Urine pH (4.5-7.5) Ur Specific [place] (1.000-1.030) Urine Protein (Negative) Urine Glucose (UA) (Negative) Urine Ketones (Negative) Urine Blood (Negative) Urine Nitrite (Negative) Urine Bilirubin (Negative) Urine Urobilinogen (Negative) Ur Leukocyte Esterase (Negative) Urine WBC (Auto) (0-5) /hpf Urine RBC (Auto) (0-4) /hpf U Hyaline Cast (Auto) (0-5) /lpf U Epithel Cells (Auto) (0-5) /lpf Urine Bacteria (Auto) (Negative) POC Ur Test (NEG) SARS-CoV-2, RNA, NAAT NEGATIVE (NEGATIVE) 12/28/21 12/28/21 12/28/21 Range/Units 17:50 20:15 21:00 WBC (4.8-10.8) K/uL RBC (4.2-5.4) M/uL Hgb (12.0-16.0) g/dL Hct (37-47) % MCV (80-100) fL MCH (25-34) pg MCHC (32-36) g/dL RDW Std Deviation (36.4-46.3) fL RDW Coeff of Tomas (11.5-14.5) % Plt Count (130-400) K/uL MPV (7.4-10.4) fL Immature Gran % (Auto) % Neut % (Auto) % Lymph % (Auto) % Sherman % (Auto) % Eos % (Auto) % Baso % (Auto) % Neut # (Auto) (1.4-6.5) K/uL Lymph # (Auto) (1.2-3.4) K/uL Sherman # (Auto) (0.11-0.59) K/uL Eos # (Auto) (0-0.5) K/uL Baso # (Auto) (0-0.2) K/uL Immature Gran # (Auto) (0.00-0.02) K/uL Sodium (136-145) mmol/L Potassium (3.5-5.1) mmol/L Chloride (98-107) mmol/L Carbon Dioxide (21-32) mmol/L Anion Gap (3-11) BUN (6-23) mg/dl Creatinine (0.6-1.2) mg/dl Est Cr Clr Drug Dosing Est GFR ( Amer) ml/min Est GFR (Non-Af Amer) ml/min BUN/Creatinine Ratio (10-20) Glucose (70-99(Fasting)) mg/dl POC Glucose 88 (70-99) mg/dl Calcium (8.5-10.1) mg/dl Magnesium 2.4 (1.7-2.4) mg/dl Total Bilirubin (0.2-1.0) mg/dl AST (13-39) U/L ALT (7-52) U/L Alkaline Phosphatase (34-104) U/L Total Protein (6.0-8.3) gm/dl Albumin (3.4-5.0) gm/dl Globulin (2.5-4.0) gm/dl Albumin/Globulin Ratio (0.9-2) Triglycerides (0-150) mg/dl Lipase (11-82) U/L Urine Color Yellow Urine Appearance Clear (Clear) Urine pH 7.0 (4.5-7.5) Ur Specific [place] 1.007 (1.000-1.030) Urine Protein Trace H (Negative) Urine Glucose (UA) Negative (Negative) Urine Ketones Negative (Negative) Urine Blood Negative (Negative) Urine Nitrite Negative (Negative) Urine Bilirubin Negative (Negative) Urine Urobilinogen Negative (Negative) Ur Leukocyte Esterase Negative (Negative) Urine WBC (Auto) 1-5 (0-5) /hpf Urine RBC (Auto) 0-4 (0-4) /hpf U Hyaline Cast (Auto) 0 (0-5) /lpf U Epithel Cells (Auto) 20-30 H (0-5) /lpf Urine Bacteria (Auto) Negative (Negative) POC Ur Test (NEG) SARS-CoV-2, RNA, NAAT (NEGATIVE) 12/28/21 Range/Units 21:00 WBC (4.8-10.8) K/uL RBC (4.2-5.4) M/uL Hgb (12.0-16.0) g/dL Hct (37-47) % MCV (80-100) fL MCH (25-34) pg MCHC (32-36) g/dL RDW Std Deviation (36.4-46.3) fL RDW Coeff of Tomas (11.5-14.5) % Plt Count (130-400) K/uL MPV (7.4-10.4) fL Immature Gran % (Auto) % Neut % (Auto) % Lymph % (Auto) % Sherman % (Auto) % Eos % (Auto) % Baso % (Auto) % Neut # (Auto) (1.4-6.5) K/uL Lymph # (Auto) (1.2-3.4) K/uL Sherman # (Auto) (0.11-0.59) K/uL Eos # (Auto) (0-0.5) K/uL Baso # (Auto) (0-0.2) K/uL Immature Gran # (Auto) (0.00-0.02) K/uL Sodium (136-145) mmol/L Potassium (3.5-5.1) mmol/L Chloride (98-107) mmol/L Carbon Dioxide (21-32) mmol/L Anion Gap (3-11) BUN (6-23) mg/dl Creatinine (0.6-1.2) mg/dl Est Cr Clr Drug Dosing Est GFR ( Amer) ml/min Est GFR (Non-Af Amer) ml/min BUN/Creatinine Ratio (10-20) Glucose (70-99(Fasting)) mg/dl POC Glucose (70-99) mg/dl Calcium (8.5-10.1) mg/dl Magnesium (1.7-2.4) mg/dl Total Bilirubin (0.2-1.0) mg/dl AST (13-39) U/L ALT (7-52) U/L Alkaline Phosphatase (34-104) U/L Total Protein (6.0-8.3) gm/dl Albumin (3.4-5.0) gm/dl Globulin (2.5-4.0) gm/dl Albumin/Globulin Ratio (0.9-2) Triglycerides (0-150) mg/dl Lipase (11-82) U/L Urine Color Urine Appearance (Clear) Urine pH (4.5-7.5) Ur Specific [place] (1.000-1.030) Urine Protein (Negative) Urine Glucose (UA) (Negative) Urine Ketones (Negative) Urine Blood (Negative) Urine Nitrite (Negative) Urine Bilirubin (Negative) Urine Urobilinogen (Negative) Ur Leukocyte Esterase (Negative) Urine WBC (Auto) (0-5) /hpf Urine RBC (Auto) (0-4) /hpf U Hyaline Cast (Auto) (0-5) /lpf U Epithel Cells (Auto) (0-5) /lpf Urine Bacteria (Auto) (Negative) POC Ur Test NEG (NEG) SARS-CoV-2, RNA, NAAT (NEGATIVE) Imaging Data Attestation: I personally reviewed and interpreted this imaging study as follows: Radiologist's Impression: KUB X-Ray 12/28/21 18:08 XR KUB/Abdomen 1 view CLINICAL HISTORY: constipation, abdominal pain. COMPARISON STUDY: No previous studies for comparison. TECHNIQUE: 2 supine views of the abdomen FINDINGS: The bowel gas pattern is within normal limits without evidence for dilatation or obstruction. There is no evidence for significant fecal stasis or impaction. There is no evidence for organomegaly or gross intra-abdominal mass. No abnormal calcifications are seen along the course of the urinary tracts bilaterally. No acute osseous pathology. IMPRESSION: 1. No acute intra-abdominal abnormality. ACT 112: Negative or not required by law. Electronically signed by: Mauricio Guthrie M.D. 12/28/2021 7:19 PM MDM Narrative Continuous awake overnight monitor: Order was placed for continuous awake overnight monitor. Patient was placed on the awake overnight monitor. Patient was noted to be in normal sinus rhythm at an initial rate of 75 bpm. The patient is a 46-year-old female who presents today complaining of abdominal pain. Patient recently seen here and diagnosed with pancreatitis. She is having worsening symptoms today. Labs revealed a lipase of 767. LFTs within normal limits. No leukocytosis or concerning electrolyte abnormalities. Patient's imaging from 2 days ago was consistent with acute pancreatitis. Did not feel it was necessary to repeat imaging at this time. Etiology of the patient's pancreatitis is unclear at this time. However, patient has attempted outpatient treatment for the past few days unsuccessfully. [facility] the patient for further care. Impression & Plan Pancreatitis Discharge Plan Visit Data Chief Complaint: Abdominal Pain Stated Complaint: ABDOMINAL PAIN, REF BY ED Provider: Gurwinder Segovia ED Midlevel Provider: Radha Andino Discharge Problem: Pancreatitis Forms Stand Alone Forms: My [facility] [employer] Prescriptions Prescriptions: No Action torsemide 20 mg tablet 20 mg PO QAM RF: 0 lisinopril 20 mg tablet 20 mg PO BID RF: 0 famotidine 40 mg tablet 40 mg PO HS RF: 0 hydralazine 25 mg tablet 25 mg PO BID RF: 0 pantoprazole 40 mg tablet,delayed release (DR/EC) 40 mg PO QAM RF: 0 ferrous sulfate 325 mg (65 mg iron) tablet 325 mg PO QAM RF: 0 docusate sodium 100 mg capsule 100 mg PO BID RF: 0 atenolol 50 mg tablet 50 mg PO BID RF: 0 oxycodone 5 mg tablet 5 mg PO Q6H PRN (Reason: pain) Qty: 15 RF: 0 potassium chloride [Klor-Con M20] 20 mEq tablet,ER particles/crystals 20 meq PO DAILY RF: 0 Fleet Enema 19-7 gram/118 mL Enema 118 ml CA DAILY PRN (Reason: Constipation) RF: 0 Referrals Referrals: Natalie Collazo, [Primary Care Provider] -
[2021-12-28 18:29] LABS: Hematocrit (blood only) 37.8 % (37-47); Mean Corpuscular Hemoglobin 26.5 pg (25-34); Mean Corpuscular Hgb Conc 31.7 g/dL (32-36); Mean Corpuscular Volume 83.6 fL (80-100); Mean Platelet Volume 10.6 fL (7.4-10.4); Platelet Count 221 K/uL (130-400); RDW Coefficient of Variation 15.1 % (11.5-14.5); RDW Standard Deviation 46.4 fL (36.4-46.3); Red Blood Count 4.52 M/uL (4.2-5.4); White Blood Count 10.62 K/uL (4.8-10.8)
[2021-12-28 18:31] LABS: Anion Gap 7 (3-11); BUN Creatinine Ratio 7.1 (10-20); Blood Urea Nitrogen 6 mg/dl (6-23); Calcium 9.5 mg/dl (8.5-10.1); Carbon Dioxide 29 mmol/L (21-32); Chloride 103 mmol/L (98-107); Est GFR (African American) 95.9 ml/min; Est GFR (Non-African American) 82.8 ml/min; Glucose 63 mg/dl (70-99(Fasting)); Potassium 3.4 mmol/L (3.5-5.1); Sodium 139 mmol/L (136-145)
[2021-12-28 18:45] LABS: Alanine Aminotransferase 10 U/L (7-52); Albumin Globulin Ratio 1.2 (0.9-2); Albumin Level 4.1 gm/dl (3.4-5.0); Alkaline Phosphatase 49 U/L (34-104); Aspartate Aminotransferase 11 U/L (13-39); Bilirubin,Total 0.3 mg/dl (0.2-1.0); Globulin 3.3 gm/dl (2.5-4.0); Lipase 767 U/L (11-82); Total Protein 7.4 gm/dl (6.0-8.3); Triglycerides 128 mg/dl (0-150)
[2021-12-28 18:57] LABS: Basophils # (auto) 0.05 K/uL (0-0.2); Basophils % (auto) 0.5 %; Eosinophils # (auto) 0.14 K/uL (0-0.5); Eosinophils % (auto) 1.3 %; Immature Granulocytes # (auto) 0.02 K/uL (0.00-0.02); Immature Granulocytes % (auto) 0.2 %; Lymphocytes # (auto) 2.39 K/uL (1.2-3.4); Lymphocytes % (auto) 22.5 %; Monocytes # (auto) 0.74 K/uL (0.11-0.59); Neutrophils # (auto) 7.28 K/uL (1.4-6.5); Neutrophils % (auto) 68.5 %
--- NOTE | 2021-12-28 19:20 | XRay Report ---
XR KUB/Abdomen 1 view CLINICAL HISTORY: constipation, abdominal pain. COMPARISON STUDY: No previous studies for comparison. TECHNIQUE: 2 supine views of the abdomen FINDINGS: The bowel gas pattern is within normal limits without evidence for dilatation or obstruction. There i s no evidence for significant fecal stasis or impaction. There is no evidence for organomegaly or ame ss intra-abdominal mass. No abnormal calcifications are seen along the course of the urinary tracts b ilaterally. No acute osseous pathology. IMPRESSION: 1. No acute intra-abdominal abnormality. ACT 112: Negative or not required by law. Electronically signed by: Mauricio Guthrie M.D. 12/28/2021 7:19 PM
[2021-12-28] MEDS ORDERED: POTASSIUM CHLORIDE CRTAB 20 MEQ TABCR PO STA (19:29)
[2021-12-28] MEDS ORDERED: THIAMINE HCL 100 MG in SYRINGE 9 ML IV STA (19:29)
--- NOTE | 2021-12-28 20:00 | History & Physical Report ---
Date of Service December 28, 2021 Assessment & Plan (1) Pancreatitis: (2) HTN (hypertension): (3) Pulmonary hypertension: (4) Obesity: Plan: Assessment and Plan per Dr Freeman. See Addendum. History of Present Illness Chief Complaint: Abdominal pain Primary Care Provider: Natalie Collazo DO Patient is 46-year-old female with PMH HTN, pulmonary hypertension, obesity presented to ER with complaint of abdominal pain x 1 week. Patient reports 1 week ago started with upper abdominal pain described as cramping. Denies any nausea or vomiting. Reports has not had BM for past week. Was seen in ER on 12/25/2021 and had elevated lipase and CT scan consistent with pancreatitis with no noted dilation of common bile duct or gallstones. She was discharged home. Patient reports she tried clear liquid diet for 48 hours. She followed up with PCP today and had reported continued abdominal pain and was referred to ER. Patient reports pain seems to have radiated to left side of abdomen. She reports tried MiraLAX x3 doses and had watery BM yesterday. Denies any fever or chills. Patient reports pain started after eating rhubarb. She reports drinks 2-3 shots of tequila once a week. Denies history of pancreatitis in past. Denies fever/chills, diaphoresis, melena, hematochezia, LOREDO, dizziness, syncope, vision changes, neck pain, CP, SOB, orthopnea, palpitations, cough, sore throat, choking, otalgia, rhinorrhea, paresthesias, weakness, extremity weakness, extremity edema, rashes, urinary symptoms. Today in ER patient afebrile, vital stable. No leukocytosis. LFTs WNL. Lipase 767. Allergies Allergy/AdvReac Type Severity Reaction Status Date / Time No Known Allergies Allergy Unverified 12/28/21 19:33 Home Medications Medication Instructions Recorded Confirmed Type atenolol 50 mg tablet 50 mg PO BID 12/25/21 12/28/21 History docusate sodium 100 mg capsule 100 mg PO BID 12/25/21 12/28/21 History famotidine 40 mg tablet 40 mg PO HS 12/25/21 12/28/21 History ferrous sulfate 325 mg (65 mg 325 mg PO QAM 12/25/21 12/28/21 History iron) tablet hydralazine 25 mg tablet 25 mg PO BID 12/25/21 12/28/21 History lisinopril 20 mg tablet 20 mg PO BID 12/25/21 12/28/21 History oxycodone 5 mg tablet 5 mg PO Q6H PRN #15 tab 12/25/21 12/28/21 Rx pantoprazole 40 mg tablet,delayed 40 mg PO QAM 12/25/21 12/28/21 History release torsemide 20 mg tablet 20 mg PO QAM 12/25/21 12/28/21 History potassium chloride 20 mEq 20 meq PO DAILY 12/28/21 12/28/21 History tablet,extended release(part/cryst) (Klor-Con M) sodium phosphates 19 gram-7 118 ml [place] DAILY PRN 12/28/21 12/28/21 History gram/118 mL enema (Fleet Enema) Past Med/Surg History Medical History (Updated 12/28/21 @ 21:55 by Radha Andino PA-C) HTN (hypertension) Obesity Pulmonary hypertension Surgical History No significant past surgical history Family History (Updated 12/28/21 @ 20:45 by Ann Rodriguez PA-C) Mother Diabetes Brother Hypertension Father Hypertension Grandfather (Maternal) Coronary heart disease Social History (Updated 12/28/21 @ 20:00 by Ann Rodriguez PA-C) Smoking Status: Current every day smoker Cigarettes Per Day: 7; Tobacco Cessation Education Requested by Patient: No Hx Alcohol Use: Yes (2-3) Alcohol type: hard liquor Alcohol Intake Frequency Comment: once a week Hx Substance Use: No Preferred Language: Macedonian Communication Ability: Effective Back Tender Cylinder Required: No Beliefs That Will Affect Care: None Current Living Situation: Family Other Information That Helps Us Care for You: No Feels Safe at Home: Yes Safety Concerns: Feels Safe At This Time Assistive Devices: None Review of Systems Review of Systems: All systems reviewed & are unremarkable except as noted in HPI & below Physical Exam Physical Exam: General: no distress, obese Head: normocephalic, atraumatic Eyes: conjunctiva non-injected, anicteric ENT: normal inspection external ears, nose, mucous membranes moist Neck: supple, trachea midline Lungs: clear, no respiratory distress, no wheezing/rhonchi/rales CV: RRR, no murmur, no pretibial edema Abd: protuberant, normal BS, soft, +tenderness to palpation epigastric, LUQ, LLQ without rebound Ext: no cyanosis, no calf tenderness Neuro: A&O x 3, no focal deficits noted, normal affect Skin: warm, dry Results & Data Results & Data ([facility]) Vital Signs (Past 12 Hours) Vital Signs Temp Pulse Pulse Resp BP BP Pulse Ox 12/28/21 18:05 78 20 117/80 96 12/28/21 17:29 97 12/28/21 16:58 36.2 C L 77 16 145/93 H 97 Laboratory Results Short CBC 12/28/21 Range/Units 17:50 WBC 10.62 (4.8-10.8) K/uL Hgb 12.0 (12.0-16.0) g/dL Hct 37.8 (37-47) % Plt Count 221 (130-400) K/uL BMP 12/28/21 17:50 Sodium 139 Potassium 3.4 L Chloride 103 Carbon Dioxide 29 BUN 6 Creatinine 0.85 Glucose 63 L Calcium 9.5 Liver Function 12/28/21 Range/Units 17:50 Total Bilirubin 0.3 (0.2-1.0) mg/dl AST 11 L (13-39) U/L ALT 10 (7-52) U/L Alkaline Phosphatase 49 (34-104) U/L Albumin 4.1 (3.4-5.0) gm/dl Diagnostic Findings KUB X-Ray 12/28/21 18:08 XR KUB/Abdomen 1 view CLINICAL HISTORY: constipation, abdominal pain. COMPARISON STUDY: No previous studies for comparison. TECHNIQUE: 2 supine views of the abdomen FINDINGS: The bowel gas pattern is within normal limits without evidence for dilatation or obstruction. There is no evidence for significant fecal stasis or impaction. There is no evidence for organomegaly or gross intra-abdominal mass. No abnormal calcifications are seen along the course of the urinary tracts bilaterally. No acute osseous pathology. IMPRESSION: 1. No acute intra-abdominal abnormality. ACT 112: Negative or not required by law. Electronically signed by: Mauricio Guthrie M.D. 12/28/2021 7:19 PM Supervising Physician Co-Signing Physician Notes IM ATTENDING : Patient seen and examined. History obtained from patient and records. Preceding documentation by Ms. Ann Rodriguez PA-C reviewed. FINAL ASSESSMENT AND PLAN as follows : Acute pancreatitis ? Alcohol induced Rule out biliary etiology Chronic diastolic heart failure (EF 55%, TTE 2020) secondary to primary pulm hypertension patient euvolemic Hypertension, slightly elevated Hyperglycemia rule out DM Ongoing tobacco abuse GMF Bowel rest, analgesia Careful IV hydration given history of diastolic heart failure Gallbladder ultrasound DT precautions; СВЕТЛАНА S if patient demonstrates signs of alcohol withdrawal GI consult Re: Pancreatitis Check hemoglobin A1c Nicotine patch. And DVT prophylaxis. Lovenox subcu Full code Text document was generated using [email or web address] voice recognition software. It may contain grammatical or spelling errors. Kindly contact undersigned for clarification of any documentation item in question. (1) Pancreatitis Acute pancreatitis complication: no infection or necrosis Chronicity: acute Pancreatitis type: unspecified pancreatitis type Qualified Code(s): K85.90 - Acute pancreatitis without necrosis or infection, unspecified
[2021-12-28] MEDS ORDERED: FAMOTIDINE 20MG IV PUSH 20 MG/5 ML SYR IV STA (21:00)
[2021-12-28] MEDS ORDERED: LACTATED RINGER'S 1,000 ML IV ONE (21:05)
[2021-12-28] MEDS ORDERED: hydrALAZINE HCL 25 MG TAB PO STA (21:06)
[2021-12-28] MEDS ORDERED: lisinopril 20 MG TAB PO STA (21:06)
[2021-12-28] MEDS ORDERED: ATENOLOL 50 MG TABLET PO ONE (21:06)
[2021-12-28] MEDS ORDERED: LORazepam 2 MG/1 ML VIAL IV PRN (21:11)
[2021-12-28] MEDS ORDERED: PROMETHAZINE HCL 12.5 MG in SODIUM CHLORIDE 0.9% 50 ML IV PRN (21:11)
[2021-12-28] MEDS ORDERED: ACETAMINOPHEN 325 MG TAB PO PRN (21:11)
[2021-12-28] MEDS ORDERED: D5W AND LACTATED RINGERS 1,000 ML IV ONE (21:13)
[2021-12-28 21:18] LABS: Appearance Urine Clear (Clear); Bacteria Urine Automated Negative (Negative); Bilirubin Urine Negative (Negative); Blood Urine Negative (Negative); Cast Urine Automated 0 /lpf (0-5); Color Urine Yellow; Epithelial Cell Urine Auto 20-30 /lpf (0-5); Glucose Urine UA Negative (Negative); Ketones Urine Negative (Negative); Leukocyte Esterase Urine Negative (Negative); Nitrite Urine Negative (Negative); Protein Urine Trace (Negative); RBC Urine Automated 0-4 /hpf (0-4); Specific Gravity Urine 1.007 (1.000-1.030); Urobilinogen Urine Negative (Negative)
[2021-12-28] MEDS: KETOROLAC TROMETHAMINE 15 MG/ML VIAL IV ONE ×2 (22:05)
[2021-12-28] MEDS: oxyCODONE HCL IR 5 MG TAB (IMMEDIATE RELEASE) PO PRN (22:54)
[2021-12-29] MEDS: MoRPHine SULFATE 4 MG/ML 1 ML CARP\\VIAL IV PRN ×2 (03:02→12:34)
--- NOTE | 2021-12-29 06:44 | Ultrasound Report ---
US gallbladder CLINICAL HISTORY: abd pain. COMPARISON: 08/15/2017 TECHNIQUE: Multiple grayscale and color images of the right upper quadrant of the abdomen. FINDINGS: Pancreas: The pancreas is within normal limits with no focal mass or peripancreatic fluid collection identified. Liver: The liver is homogeneous in echogenicity There is no evidence for a focal mass. There is no in trahepatic biliary duct dilatation. Gallbladder: The gallbladder is well distended with a 3 mm echogenic focus present as seen on one rina ge. No posterior acoustic shadowing is seen. The findings are characteristic of a small gallbladder p olyp. No evidence for wall thickening or pericholecystic edema is seen. There was reportedly a negati ve sonographic Worley sign. Common Bile Duct: (CBD): It is normal in size measuring 4 mm. Inferior Vena Cava (IVC): The imaged IVC is patent. Right kidney: There is no evidence for hydronephrosis, calculus or gross renal mass. The kidney is no rmal in size. And measures 12.6 cm in greatest length. IMPRESSION: 1. Evidence for a 3 mm gallbladder polyp. Follow-up ultrasound in 6 months is recommended for further evaluation. ACT 112: Negative or not required by law. Electronically signed by: Mauricio Guthrie M.D. 12/29/2021 6:42 AM
[2021-12-29 06:56] LABS: Hematocrit (blood only) 32.5 % (37-47); Mean Corpuscular Hemoglobin 26.1 pg (25-34); Mean Corpuscular Hgb Conc 30.8 g/dL (32-36); Mean Corpuscular Volume 84.9 fL (80-100); Mean Platelet Volume 10.4 fL (7.4-10.4); Platelet Count 191 K/uL (130-400); RDW Coefficient of Variation 15.2 % (11.5-14.5); RDW Standard Deviation 47.3 fL (36.4-46.3); Red Blood Count 3.83 M/uL (4.2-5.4); White Blood Count 7.72 K/uL (4.8-10.8)
[2021-12-29 07:23] LABS: Basophils # (auto) 0.08 K/uL (0-0.2); Eosinophils # (auto) 0.22 K/uL (0-0.5); Eosinophils % (auto) 2.8 %; Immature Granulocytes # (auto) 0.02 K/uL (0.00-0.02); Immature Granulocytes % (auto) 0.3 %; Lymphocytes # (auto) 2.86 K/uL (1.2-3.4); Monocytes # (auto) 0.56 K/uL (0.11-0.59); Monocytes % (auto) 7.3 %; Neutrophils # (auto) 3.98 K/uL (1.4-6.5); Neutrophils % (auto) 51.6 %
[2021-12-29 07:25] LABS: Albumin Globulin Ratio 1.4 (0.9-2); Albumin Level 3.3 gm/dl (3.4-5.0); BUN Creatinine Ratio 8.6 (10-20); Bilirubin,Total 0.3 mg/dl (0.2-1.0); Calcium 8.4 mg/dl (8.5-10.1); Creatinine Clr Calc Pharmacy 111.9 ml/min; Est GFR (African American) 121.3 ml/min; Est GFR (Non-African American) 104.6 ml/min; Globulin 2.4 gm/dl (2.5-4.0); Total Protein 5.7 gm/dl (6.0-8.3)
[2021-12-29] MEDS: oxyCODONE HCL IR 5 MG TAB (IMMEDIATE RELEASE) PO PRN (07:34)
[2021-12-29] MEDS: D5W AND LACTATED RINGERS 1,000 ML IV SCH ×2 (07:38→16:59)
[2021-12-29] MEDS: hydrALAZINE HCL 25 MG TAB PO SCH ×2 (09:06→20:16)
[2021-12-29] MEDS: PANTOprazole 40 MG TAB PO SCH (09:06)
[2021-12-29] MEDS: lisinopril 20 MG TAB PO SCH ×2 (09:06→20:16)
[2021-12-29] MEDS: ATENOLOL 50 MG TABLET PO SCH ×2 (09:06→20:16)
[2021-12-29] MEDS: ENOXAPARIN INJ 40 MG/0.4 ML SYR SQ SCH (09:07)
[2021-12-29] MEDS: THIAMINE HCL 100 MG TAB PO SCH (09:08)
[2021-12-29] MEDS: FOLIC ACID 1 MG TAB PO SCH (09:08)
[2021-12-29] MEDS: MULTIVITAMIN TAB PO SCH (09:08)
[2021-12-29] MEDS: FERROUS SULFATE 325 MG TAB PO SCH (09:08)
[2021-12-29] MEDS ORDERED: ACETAMINOPHEN 500 MG TAB PO ONE (13:42)
[2021-12-29] MEDS ORDERED: ACETAMINOPHEN 500 MG TAB PO STA (20:53)
[2021-12-29] MEDS ORDERED: MoRPHine SULFATE 4 MG/ML 1 ML CARP\\VIAL IV PRN (20:56)
[2021-12-29] MEDS ORDERED: FAMOTIDINE 40 MG TABLET PO SCH (21:00)
--- NOTE | 2021-12-29 23:52 | Hospitalist Progress Note ---
Date of Service December 29, 2021 Assessment & Plan (1) Pancreatitis: (2) HTN (hypertension): (3) Pulmonary hypertension: (4) Obesity: Plan: Present on admission with worsening SOB Lipase on admission 767 Gallbladder u/s showed evidence for a 3 mm gallbladder polyp. Continue IVF Will start on Full liquid diet and advance as tolerated Counseling on alcohol Clinically improves Gallbladder Polyp Follow-up ultrasound in 6 months is recommended for further evaluation. Pulmonary HTN Will resume Torsemide in am Obesity BMI 37.5 Counseling on weight loss Chronic diastolic heart failure (EF 55%, TTE 2020) secondary to primary pulm hypertension Monitor closely for sign of fluid overload Tobacco abuse Counseling on tobacco cessation DVT px on Lovenox Code status Full code Admission and Anticipated Discharge Date Admission Date: December 28, 2021 Subjective Pt was seen and examined for follow up abdominal pain Lying in bed with no acute distress Pt said that she does not have any abdominal pain today She would like to try to eat something Denies any chest pain, palpitation, dizziness and SOB Review of Systems Review of Systems: All systems reviewed & are unremarkable except as noted in Subjective Physical Exam Physical Exam: General- No acute distress Head- atraumatic Eyes- PERRL, EOMI, ENT- oropharynx clear Neck- supple, no JVD Lungs- clear to auscultation Heart- regular rhythm; no murmur Abdomen- normal bowel sounds, soft, nontender Extremities- no calf tenderness Neuro- alert, oriented x 3; PERRL, EOMI; no facial palsy; no dysarthria Skin- warm & dry Results & Data Results & Data ([facility]) Vital Signs (Past 12 Hours) Vital Signs Temp Pulse Resp BP Pulse Ox 12/29/21 22:49 36.7 C 64 16 110/71 94 12/29/21 20:14 58 L 105/70 97 12/29/21 17:45 68 112/70 12/29/21 17:01 36.8 C 56 L 16 96/63 L 97
[2021-12-30] MEDS: D5W AND LACTATED RINGERS 1,000 ML IV SCH (04:11)
[2021-12-30] MEDS: hydrALAZINE HCL 25 MG TAB PO SCH (08:16)
[2021-12-30] MEDS: lisinopril 20 MG TAB PO SCH (08:16)
[2021-12-30] MEDS: ATENOLOL 50 MG TABLET PO SCH (08:17)
[2021-12-30] MEDS: ENOXAPARIN INJ 40 MG/0.4 ML SYR SQ SCH (08:18)
[2021-12-30] MEDS: MULTIVITAMIN TAB PO SCH (08:18)
[2021-12-30] MEDS: PANTOprazole 40 MG TAB PO SCH (08:18)
[2021-12-30] MEDS: FERROUS SULFATE 325 MG TAB PO SCH (08:18)
[2021-12-30] MEDS: THIAMINE HCL 100 MG TAB PO SCH (08:18)
[2021-12-30] MEDS: FOLIC ACID 1 MG TAB PO SCH (08:18)
[2021-12-30] MEDS ORDERED: TORSEMIDE 20 MG TAB PO SCH (09:00)
[2021-12-30] MEDS: oxyCODONE HCL IR 5 MG TAB (IMMEDIATE RELEASE) PO PRN (09:05)
--- NOTE | 2021-12-30 09:05 | XRay Report ---
XR chest 1V portable CLINICAL HISTORY: Shortness of breath. COMPARISON STUDY: Chest radiograph September 15, 2017. FINDINGS: There is no pneumothorax. There may be trace bilateral pleural effusions. There are minimal bibasilar opacities. Cardiac size is at upper limits of normal. No evidence for pulmonary edema. IMPRESSION: Mild bibasilar opacities with suspected trace bilateral pleural effusions. ACT 112: Negative or not required by law. Electronically signed by: Tung Narayan M.D. 12/30/2021 9:03 AM
[2021-12-30 10:09] LABS: BUN Creatinine Ratio 12.1 (10-20); Creatinine Clr Calc Pharmacy 118.7 ml/min; Est GFR (African American) 123.6 ml/min; Est GFR (Non-African American) 106.7 ml/min; Potassium 4.1 mmol/L (3.5-5.1)
[2021-12-30] MEDS ORDERED: ACETAMINOPHEN 500 MG TAB PO STA (14:15)
[2021-12-30] MEDS ORDERED: ACETAMINOPHEN 500 MG TAB PO ONE (14:27)
--- NOTE | 2022-01-01 09:49 | Discharge Summary ---
Date of Service December 30, 2021 Admission HPI Per Admitting Provider Patient is 46-year-old female with PMH HTN, pulmonary hypertension, obesity presented to ER with complaint of abdominal pain x 1 week. Patient reports 1 week ago started with upper abdominal pain described as cramping. Denies any nausea or vomiting. Reports has not had BM for past week. Was seen in ER on 12/25/2021 and had elevated lipase and CT scan consistent with pancreatitis with no noted dilation of common bile duct or gallstones. She was discharged home. Patient reports she tried clear liquid diet for 48 hours. She followed up with PCP today and had reported continued abdominal pain and was referred to ER. Patient reports pain seems to have radiated to left side of abdomen. She reports tried MiraLAX x3 doses and had watery BM yesterday. Denies any fever or chills. Patient reports pain started after eating rhubarb. She reports drinks 2-3 shots of tequila once a week. Denies history of pancreatitis in past. Denies fever/chills, diaphoresis, melena, hematochezia, LOREDO, dizziness, syncope, vision changes, neck pain, CP, SOB, orthopnea, palpitations, cough, sore throat, choking, otalgia, rhinorrhea, paresthesias, weakness, extremity weakness, extremity edema, rashes, urinary symptoms. Today in ER patient afebrile, vital stable. No leukocytosis. LFTs WNL. Lipase 767. Admission Exam Per Admitting Provider General: no distress, obese Head: normocephalic, atraumatic Eyes: conjunctiva non-injected, anicteric ENT: normal inspection external ears, nose, mucous membranes moist Neck: supple, trachea midline Lungs: clear, no respiratory distress, no wheezing/rhonchi/rales CV: RRR, no murmur, no pretibial edema Abd: protuberant, normal BS, soft, +tenderness to palpation epigastric, LUQ, LLQ without rebound Ext: no cyanosis, no calf tenderness Neuro: A&O x 3, no focal deficits noted, normal affect Skin: warm, dry Principal Diagnosis Pancreatitis: HTN (hypertension): Pulmonary hypertension: Gallbladder Polyp Chronic diastolic heart failure Tobacco abuse Discharge Exam General- No acute distress Head- atraumatic Eyes- PERRL, EOMI, ENT- oropharynx clear Neck- supple, no JVD Lungs- clear to auscultation Heart- regular rhythm; no murmur Abdomen- normal bowel sounds, soft, nontender Extremities- no calf tenderness Neuro- alert, oriented x 3; PERRL, EOMI; no facial palsy; no dysarthria Skin- warm & dry Discharge Data Allergies Allergy/AdvReac Type Severity Reaction Status Date / Time No Known Allergies Allergy Unverified 12/28/21 19:33 Consultations 12/28/21 22:32 Consult Gastroenterology Routine Ordered Studies 12/28/21 20:59 US gallbladder Urgent XR chest 1V portable CLINICAL HISTORY: Shortness of breath. COMPARISON STUDY: Chest radiograph September 15, 2017. FINDINGS: There is no pneumothorax. There may be trace bilateral pleural effusions. There are minimal bibasilar opacities. Cardiac size is at upper limits of normal. No evidence for pulmonary edema. IMPRESSION: Mild bibasilar opacities with suspected trace bilateral pleural effusions. ACT 112: Negative or not required by law. Electronically signed by: Tung Narayan M.D. 12/30/2021 9:03 AM Dictated:12/30/21 09 Transcribed: 12/30/21901 US gallbladder CLINICAL HISTORY: abd pain. COMPARISON: 08/15/2017 TECHNIQUE: Multiple grayscale and color images of the right upper quadrant of the abdomen. FINDINGS: Pancreas: The pancreas is within normal limits with no focal mass or peripancreatic fluid collection identified. Liver: The liver is homogeneous in echogenicity There is no evidence for a focal mass. There is no intrahepatic biliary duct dilatation. Gallbladder: The gallbladder is well distended with a 3 mm echogenic focus present as seen on one image. No posterior acoustic shadowing is seen. The findings are characteristic of a small gallbladder polyp. No evidence for wall thickening or pericholecystic edema is seen. There was reportedly a negative sonographic Worley sign. Common Bile Duct: (CBD): It is normal in size measuring 4 mm. Inferior Vena Cava (IVC): The imaged IVC is patent. Right kidney: There is no evidence for hydronephrosis, calculus or gross renal mass. The kidney is normal in size. And measures 12.6 cm in greatest length. IMPRESSION: 1. Evidence for a 3 mm gallbladder polyp. Follow-up ultrasound in 6 months is recommended for further evaluation. ACT 112: Negative or not required by law. Electronically signed by: Mauricio Guthrie M.D. 12/29/2021 6:42 AM Dictated:12/29/21639 Transcribed: 12/29/21639 XR KUB/Abdomen 1 view CLINICAL HISTORY: constipation, abdominal pain. COMPARISON STUDY: No previous studies for comparison. TECHNIQUE: 2 supine views of the abdomen FINDINGS: The bowel gas pattern is within normal limits without evidence for dilatation or obstruction. There is no evidence for significant fecal stasis or impaction. There is no evidence for organomegaly or gross intra-abdominal mass. No abnormal calcifications are seen along the course of the urinary tracts bilaterally. No acute osseous pathology. IMPRESSION: 1. No acute intra-abdominal abnormality. ACT 112: Negative or not required by law. Electronically signed by: Mauricio Guthrie M.D. 12/28/2021 7:19 PM Dictated:12/28/211917 Transcribed: 12/28/211917 Hospital Course (1) Pancreatitis: (2) HTN (hypertension): (3) Pulmonary hypertension: (4) Obesity: Present on admission with worsening SOB Lipase on admission 767 Lipase 48 today Gallbladder u/s showed evidence for a 3 mm gallbladder polyp. Diet advanced to low fat and tolerated well Counseling on alcohol cessation Clinically stable Gallbladder Polyp Follow-up ultrasound in 6 months is recommended for further evaluation. Ultrasound result discussed with patient Pulmonary HTN Continue Torsemide daily Small pleural effusion CXR showed Mild bibasilar opacities with suspected trace bilateral pleural effusions. Torsemide resumed Asymptomatic Obesity BMI 37.5 Counseling on weight loss Chronic diastolic heart failure (EF 55%, TTE 2020) secondary to primary pulm hypertension Monitor closely for sign of fluid overload Tobacco abuse Counseling on tobacco cessation DVT px on Lovenox Code status Full code Total Time Total Time Spent Total Time Spent (In Minutes): 35 minutes Discharge Plan Discharge Items Patient Disposition: Home - Self-Care Reason For Visit: PANCREATITIS Discharge Diagnosis: Pancreatitis: HTN (hypertension): Pulmonary hypertension: Gallbladder Polyp Chronic diastolic heart failure Tobacco abuse Activity: Resume your previous activity Non-emergency contact: Primary Care Provider and Cd Technician Call non-emergency contact if: you have any medication questions Follow-up/Referrals: Natalie Collazo, [Primary Care Provider] - Diet: Heart Healthy and Low Fat Addtl Attending Provider Instructions: Follow up with your primary care provider within 1 week ( office will call you for the appointment) Follow up with gastroenterology to arrange for endoscopy ultrasound You will need a gallbladder ultrasound within 6 month to monitor for the gallbladder polyp Advance diet slowly as tolerated Counseling on smoking cessation Continue weight loss and exercise Do no drive or operate any machine after taking the narcotic Seek medical attention if your symptoms reoccur or worsening Pending Studies at Discharge: No Stand-Alone Forms: My [facility], Smoking Cessation Medications and DC Order Prescriptions: Continued torsemide 20 mg tablet 20 mg PO QAM RF: 0 lisinopril 20 mg tablet 20 mg PO BID RF: 0 famotidine 40 mg tablet 40 mg PO HS RF: 0 hydralazine 25 mg tablet 25 mg PO BID RF: 0 pantoprazole 40 mg tablet,delayed release (DR/EC) 40 mg PO QAM RF: 0 ferrous sulfate 325 mg (65 mg iron) tablet 325 mg PO QAM RF: 0 docusate sodium 100 mg capsule 100 mg PO BID RF: 0 atenolol 50 mg tablet 50 mg PO BID RF: 0 potassium chloride [Klor-Con M20] 20 mEq tablet,ER particles/crystals 20 meq PO DAILY RF: 0 Fleet Enema 19-7 gram/118 mL Enema 118 ml [place] DAILY PRN (Reason: Constipation) RF: 0 Changed oxycodone 5 mg tablet 5 mg PO Q12H PRN (Reason: pain) Qty: 10 RF: 0 Discharge Orders: Discharge Order (Routine); Ordered 12/30/21 Ordered By: Librado Henriquez/Other Patient Handouts: Understanding Pancreatitis, ED Pancreatitis Admission Data Admit Date/Time: 12/28/21 21:08 Attending Provider: Librado Mukherjee Admit Provider: Mark Freeman Primary Care Provider: Natalie Collazo Other Providers: Arcelia Craft ; Miladis Quiroz ; Marely Martinez ; Ngozi Guillen ; Leonel Carney ; Abeba Garcia ; Maxim Lagunas ; Perry Retana ; Alice Pacheco ; Jaycee Orta ; Maren Guerrero ; Katie Gomez ; Kelly Gregorio Other Interventions: Discharge Summary Assessment (RN) Last Done: 12/30/21 16:23
== END 2021-12-30 17:29 | disposition home or self-care (01) | DRG 439 ==
LOC: ED 16:57 → 3N 21:08 → INTOOBSV 21:08 → 3N 22:19

== ENCOUNTER 2025-03-13 18:24 | Observation (INO) ==
[2025-03-13] MEDS: ASPIRIN CHEW 324 MG PO STA (18:56)
--- NOTE | 2025-03-13 18:58 | Emergency Department Note ---
Impression & Plan Left-sided chest pain, Hypertension ED Provider Note NAME: JOLIE STEPHENS AGE: 49 SEX: Female INFORMANT: Patient ED PROVIDER(S): Derek Anderson MD CHIEF COMPLAINT: Hypertension and chest discomfort PLAN: Disposition: Admitted Outpatient prescription management: none Referral: None MEDICAL DECISION MAKING: Patient presented because of elevated blood pressure and left-sided chest discomfort. She rated as a 5 out of 10. The patient had a nonischemic ECG. She was given aspirin and Nitropaste as her blood pressure was 200/123. Record review indicates this is atypical for the patient. Blood work and chest x-ray performed. Patient unremarkable CBC and chemistry panel. Cardiac troponin was negative. Patient had second EKG which did not show any ST elevation or evolution. CT scan of the chest was done and no evidence of dissection or pulmonary embolism. Discussed the need for further evaluation and management in the hospital given her family risk factors, smoking, and severe hypertension. Patient in agreement. Consultation was made with the [facility],Dr. Mark Freeman. Case discussed and diagnostics reviewed. Patient was evaluated in the ER and admitted for further management Care/management discussed with: manager production Level of care consideration(s): After review of the information above and other included data, I feel the patient requires escalation of care to admission Triage Nursing notes: reviewed and agree them. Vital Signs: reviewed and remarkable for severe hypertension Additional History obtained from: none Chronic Medical/Social Conditions affecting care: Hypertension Prior/ Outside/ External records reviewed: none Differential Diagnosis: ACS, benign hypertension, hypertensive emergency, cardiovascular pathology, toxicologic, pheochromocytoma, electrolyte abnormality, renal disease, endorgan damage, as well as other pathologies. Diagnostics, independently interpreted by me: ECG: Twelve-lead ECG reveals a sinus bradycardia at [address] elevation or depression. No PACs or PVCs. No pericarditis. Cardiac Monitoring: Cardiac monitoring ordered by me: The patient was placed on continuous cardiac monitoring and observed. It revealed a normal sinus rhythm at 61 beats per minute without ectopy or evidence of dysrhythmia. Medical decision rules: none Imaging studies: Chest x-ray. Findings: A chest x-ray was performed and revealed no pneumothorax, effusion, infiltrate, pulmonary edema, free air under the diaphragm, or wide mediastinum. Impression: No acute disease. CT scan of the chest is negative for pulmonary embolism or dissection. HPI: 49 year old Female arrives for evaluation of hypertension and left-sided chest discomfort. This started this morning and is persisting. The patient also notes the following associated symptoms, some left-sided neck pain, headache that resolved with Tylenol. The patient has noted no other relieving factors. Current pain is rated as 5/10. Patient was concerned as her blood pressure is normally well-controlled. She has not missed any doses of her medications. She does take atenolol, torsemide, and hydralazine. Pt denies LOC, headache, fevers, chills, diaphoresis, visual changes,breathing difficulties, nausea, vomiting, abdominal pain, back pain, urinary symptoms, numbness, weakness, lymphadenopathy, rash, or other complaints. PAST MEDICAL HISTORY: See Below, pulmonary hypertension, hypertension PAST SURGICAL HISTORY: See Below, SOCIAL HISTORY: See Below, smokes HOME MEDICATIONS: See Below ALLERGIES: See Below VITALS: See Below PHYSICAL EXAMINATION: GENERAL: Awake, alert, mildly uncomfortable-appearing, in no distress HENT: Normocephalic, atraumatic. Oropharynx unremarkable. EYES: Normal conjunctiva. Sclera non-icteric. NECK: Inspection normal. Non-tender. Supple. No nuchal rigidity. FROM. No masses. RESPIRATORY: Clear to auscultation. No wheezes. No rales. Normal respiratory effort. CARDIAC: Normal rate. Normal rhythm. No murmurs. No rubs. Extremities warm and well perfused. Pulses equal. No JVD. GI: Soft, non-distended. No tenderness to palpation. No rebound or guarding. No masses. RECTAL: Deferred. MUSCULOSKELETAL: Atraumatic. Chest examination reveals no tenderness. The back is symmetrical on inspection without obvious abnormality. There is no CVA tenderness to palpation. No joint edema. LOWER EXTREMITIES: Calves are equal size bilaterally and non-tender. No edema. No discoloration. NEURO: Normal sensorium. No sensory or motor deficits noted. SKIN: No rash or jaundice noted. PROCEDURES: none CRITICAL CARE: none OBSERVATION NOTE: none Past Med/Surg History Problem List (Updated 03/13/25 @ 18:57 by Derek Anderson MD) Hypertension (Acute) Left-sided chest pain (Acute) Pilonidal disease Sleep apnea Sebaceous cyst Medical History Obesity Pulmonary hypertension Pancreatitis Anemia HTN (hypertension) Surgical History H/O colonoscopy History of cardiac catheterization History of delivery Family History Mother Diabetes Kidney disease Brother Hypertension Father Hypertension Grandfather (Maternal) Coronary heart disease Cancer Heart disease Grandfather (Paternal) Colorectal cancer Grandmother Cancer Diabetes Aunt Diabetes Uncle Diabetes Social History Smoking Status: Current every day smoker Tobacco Type: Cigarettes Age Started Using Tobacco: 17; Cigarettes Per Day: 7; Hx Alcohol Use: Yes (2-3) Alcohol type: hard liquor Alcohol Intake Frequency Comment: once a week Hx Substance Use: No Preferred Language: Burmese Communication Ability: Effective Visual Impairment: No Limitations Stonework Tracer Required: No Beliefs That Will Affect Care: None Current Living Situation: Family current occupation: [employer] How many Children do You have: 1 Feels Safe at Home: Yes Diet: regular during the past year weight has: decreased > 10 lbs Assistive Devices: None Allergies Allergies Allergy/AdvReac Type Severity Reaction Status Date / Time No Known Allergies Allergy Verified 03/13/25 19:18 Home Meds Home Medications Medication Instructions Recorded Confirmed atenolol 50 mg tablet 50 mg PO BID 12/25/21 03/13/25 famotidine 40 mg tablet 40 mg PO HS 12/25/21 03/13/25 hydralazine 25 mg tablet 25 mg PO BID 12/25/21 03/13/25 lisinopril 20 mg tablet 20 mg PO BID 12/25/21 03/13/25 pantoprazole 40 mg tablet,delayed 40 mg PO QAM 12/25/21 03/13/25 release torsemide 20 mg tablet 20 mg PO QAM 12/25/21 03/13/25 potassium chloride 20 mEq 20 meq PO DAILY 12/28/21 03/13/25 tablet,extended release(part/cryst) (Klor-Con M) docusate sodium 100 mg capsule 100 mg PO DAILY PRN WHEN TAKE IRON 06/12/24 03/13/25 SUPPLIMENT ferrous sulfate 325 mg (65 mg 325 mg PO .2-3XWK 06/12/24 03/13/25 iron) tablet (iron) fluoxetine 10 mg capsule 10 mg PO QAM 06/12/24 03/13/25 lorazepam 1 mg tablet 1 mg PO HS PRN Sleep 03/13/25 03/13/25 nitrofurantoin 100 mg PO BID 03/13/25 03/13/25 monohydrate/macrocrystals 100 mg capsule Results & Data (ED) Vital Signs Vital Signs - 24 hr 03/13/25 18:26 03/13/25 18:41 03/13/25 18:51 Temperature 36.6 C Temperature Source Temporal Artery Scan Pulse Rate 60 55 L 54 L Pulse Rate from SpO2 Sensor Respiratory Rate 20 16 Respiratory Effort / Characteristics Non-Labored Respiratory Depth Normal Blood Pressure 204/83 H Blood Pressure Mean 123 Pulse Oximetry 98 Oxygen Delivery Method Room Air Sepsis Recent Fever Within 48 Hours No Sepsis New/Unexplained Change in Mental Status No Sepsis Action Taken by Nursing No Action Required 03/13/25 19:03 03/13/25 19:06 03/13/25 19:07 Temperature Temperature Source Pulse Rate 58 L Pulse Rate from SpO2 Sensor Respiratory Rate 16 Respiratory Effort / Characteristics Non-Labored Respiratory Depth Normal Blood Pressure Blood Pressure Mean Pulse Oximetry Oxygen Delivery Method Room Air Sepsis Recent Fever Within 48 Hours Sepsis New/Unexplained Change in Mental Status Sepsis Action Taken by Nursing 03/13/25 19:12 03/13/25 19:25 03/13/25 19:27 Temperature Temperature Source Pulse Rate 58 L 61 Pulse Rate from SpO2 Sensor Respiratory Rate 17 18 Respiratory Effort / Characteristics Respiratory Depth Blood Pressure 162/93 H Blood Pressure Mean 120 Pulse Oximetry Oxygen Delivery Method Sepsis Recent Fever Within 48 Hours Sepsis New/Unexplained Change in Mental Status Sepsis Action Taken by Nursing 03/13/25 19:33 03/13/25 19:42 03/13/25 19:48 Temperature Temperature Source Pulse Rate 60 59 L 61 Pulse Rate from SpO2 Sensor Respiratory Rate 13 15 21 Respiratory Effort / Characteristics Respiratory Depth Blood Pressure Blood Pressure Mean Pulse Oximetry Oxygen Delivery Method Sepsis Recent Fever Within 48 Hours Sepsis New/Unexplained Change in Mental Status Sepsis Action Taken by Nursing 03/13/25 19:58 03/13/25 20:12 03/13/25 20:15 Temperature Temperature Source Pulse Rate 60 Pulse Rate from SpO2 Sensor 59 L Respiratory Rate 19 Respiratory Effort / Characteristics Respiratory Depth Blood Pressure 189/93 H 161/89 H Blood Pressure Mean 137 104 Pulse Oximetry 95 Oxygen Delivery Method Sepsis Recent Fever Within 48 Hours Sepsis New/Unexplained Change in Mental Status Sepsis Action Taken by Nursing 03/13/25 20:24 03/13/25 20:30 03/13/25 20:36 Temperature Temperature Source Pulse Rate 60 60 Pulse Rate from SpO2 Sensor 59 L 60 Respiratory Rate 21 21 Respiratory Effort / Characteristics Respiratory Depth Blood Pressure 149/85 H 149/85 H Blood Pressure Mean 106 113 Pulse Oximetry 94 95 Oxygen Delivery Method Sepsis Recent Fever Within 48 Hours Sepsis New/Unexplained Change in Mental Status Sepsis Action Taken by Nursing 03/13/25 20:45 03/13/25 20:54 03/13/25 21:00 Temperature Temperature Source Pulse Rate 61 58 L Pulse Rate from SpO2 Sensor 61 56 L Respiratory Rate 21 16 Respiratory Effort / Characteristics Non-Labored Respiratory Depth Normal Blood Pressure Blood Pressure Mean Pulse Oximetry 95 99 Oxygen Delivery Method Sepsis Recent Fever Within 48 Hours Sepsis New/Unexplained Change in Mental Status Sepsis Action Taken by Nursing 03/13/25 21:00 03/13/25 21:15 03/13/25 21:21 Temperature Temperature Source Pulse Rate 58 L 72 Pulse Rate from SpO2 Sensor 57 L 60 Respiratory Rate 19 22 Respiratory Effort / Characteristics Respiratory Depth Blood Pressure 168/93 H Blood Pressure Mean 134 Pulse Oximetry 98 94 Oxygen Delivery Method Sepsis Recent Fever Within 48 Hours Sepsis New/Unexplained Change in Mental Status Sepsis Action Taken by Nursing 03/13/25 21:30 03/13/25 21:33 03/13/25 21:51 Temperature Temperature Source Pulse Rate 59 L 53 L Pulse Rate from SpO2 Sensor 58 L 54 L Respiratory Rate 22 16 Respiratory Effort / Characteristics Respiratory Depth Blood Pressure 163/91 H Blood Pressure Mean 130 Pulse Oximetry 96 98 Oxygen Delivery Method Sepsis Recent Fever Within 48 Hours Sepsis New/Unexplained Change in Mental Status Sepsis Action Taken by Nursing 03/13/25 22:00 03/13/25 22:00 03/13/25 22:06 Temperature Temperature Source Pulse Rate 58 L Pulse Rate from SpO2 Sensor 58 L Respiratory Rate 17 Respiratory Effort / Characteristics Respiratory Depth Blood Pressure 160/91 H 160/91 H Blood Pressure Mean 116 116 Pulse Oximetry 98 Oxygen Delivery Method Sepsis Recent Fever Within 48 Hours Sepsis New/Unexplained Change in Mental Status Sepsis Action Taken by Nursing 03/13/25 22:24 03/13/25 22:30 03/13/25 22:30 Temperature Temperature Source Pulse Rate 57 L Pulse Rate from SpO2 Sensor 57 L Respiratory Rate 24 Respiratory Effort / Characteristics Respiratory Depth Blood Pressure 153/89 H 153/89 H Blood Pressure Mean 109 109 Pulse Oximetry 95 Oxygen Delivery Method Sepsis Recent Fever Within 48 Hours Sepsis New/Unexplained Change in Mental Status Sepsis Action Taken by Nursing 03/13/25 22:30 03/13/25 22:30 03/13/25 22:35 Temperature Temperature Source Pulse Rate 55 L 58 L Pulse Rate from SpO2 Sensor 56 L Respiratory Rate 20 Respiratory Effort / Characteristics Respiratory Depth Blood Pressure 153/89 H Blood Pressure Mean 109 Pulse Oximetry 98 Oxygen Delivery Method Sepsis Recent Fever Within 48 Hours Sepsis New/Unexplained Change in Mental Status Sepsis Action Taken by Nursing 03/13/25 22:48 03/13/25 22:51 03/13/25 23:00 Temperature Temperature Source Pulse Rate 59 L 59 L Pulse Rate from SpO2 Sensor 59 L 58 L Respiratory Rate 16 14 Respiratory Effort / Characteristics Non-Labored Respiratory Depth Normal Blood Pressure Blood Pressure Mean Pulse Oximetry 99 99 Oxygen Delivery Method Sepsis Recent Fever Within 48 Hours Sepsis New/Unexplained Change in Mental Status Sepsis Action Taken by Nursing 03/13/25 23:03 03/13/25 23:12 03/13/25 23:27 Temperature Temperature Source Pulse Rate 62 59 L 59 L Pulse Rate from SpO2 Sensor Respiratory Rate 24 22 20 Respiratory Effort / Characteristics Respiratory Depth Blood Pressure Blood Pressure Mean Pulse Oximetry 98 Oxygen Delivery Method Sepsis Recent Fever Within 48 Hours Sepsis New/Unexplained Change in Mental Status Sepsis Action Taken by Nursing 03/13/25 23:30 03/13/25 23:30 03/13/25 23:30 Temperature Temperature Source Pulse Rate 56 L Pulse Rate from SpO2 Sensor Respiratory Rate 13 Respiratory Effort / Characteristics Respiratory Depth Blood Pressure 172/97 H 172/97 H Blood Pressure Mean 132 132 Pulse Oximetry Oxygen Delivery Method Sepsis Recent Fever Within 48 Hours Sepsis New/Unexplained Change in Mental Status Sepsis Action Taken by Nursing 03/13/25 23:42 Temperature Temperature Source Pulse Rate 63 Pulse Rate from SpO2 Sensor Respiratory Rate 18 Respiratory Effort / Characteristics Respiratory Depth Blood Pressure Blood Pressure Mean Pulse Oximetry Oxygen Delivery Method Sepsis Recent Fever Within 48 Hours Sepsis New/Unexplained Change in Mental Status Sepsis Action Taken by Nursing Laboratory Data 03/13/25 19:50 03/13/25 19:50 Lab Results 03/13/25 03/13/25 Range/Units 19:50 23:14 WBC 8.25 (4.8-10.8) K/ul RBC 5.09 (4.20-5.40) M/uL Hgb 10.9 L (12.0-16.0) g/dl Hct 36.1 L (37.0-47.0) % MCV 70.9 L (80.0-100.0) fL MCH 21.4 L (25.0-34.0) pg MCHC 30.2 L (32.0-36.0) g/dL RDW Std Deviation 43.6 (36.4-46.3) fL RDW Coeff of Tomas 17.2 H (11.5-14.5) % Plt Count 220 (130-400) K/uL MPV 10.8 (9.4-12.4) fL Immature Gran % (Auto) 0.1 % Neut % (Auto) 41.8 % Lymph % (Auto) 43.4 % [place] % (Auto) 8.4 % Eos % (Auto) 5.0 % Baso % (Auto) 1.3 % Neut # (Auto) 3.45 (1.40-6.50) K/uL Lymph # (Auto) 3.58 H (1.20-3.40) K/uL [place] # (Auto) 0.69 H (0.11-0.59) K/uL Eos # (Auto) 0.41 (0.00-0.50) K/uL Baso # (Auto) 0.11 (0.00-0.20) K/uL Immature Gran # (Auto) 0.01 (0.01-0.20) K/uL APTT 27 (21-31) Seconds PTT Ratio 1.0 Sodium 138 (136-145) mmol/L Potassium 3.2 L (3.5-5.1) mmol/L Chloride 100 (98-107) mmol/L Carbon Dioxide 31 (21-32) mmol/L Anion Gap 7 (3-11) BUN 11 (6-23) mg/dl Creatinine 1.10 (0.6-1.2) mg/dl Est Cr Clr Drug Dosing 64.0 ml/min eGFR 61.98 BUN/Creatinine Ratio 10.0 (10-20) Glucose 88 (70-99(Fasting)) mg/dl Calcium 9.4 (8.6-10.3) mg/dl Magnesium 2.2 (1.7-2.4) mg/dl Total Bilirubin 0.3 (0.2-1.0) mg/dl AST 13 (13-39) U/L ALT 19 (7-52) U/L Alkaline Phosphatase 63 (34-104) U/L Troponin I High Sens 3.5 2.7 (0-14) pg/ml Total Protein 6.6 (6.0-8.3) gm/dl Albumin 3.9 (3.4-5.0) gm/dl Globulin 2.7 (2.5-4.0) gm/dl Albumin/Globulin Ratio 1.4 (0.9-2) Lipase 92 H (11-82) U/L Administered Medications Discontinued Medications Aspirin (Aspirin Chew 324 Mg) 324 mg PO NOW STA Stop: 03/13/25 18:46 Last Admin: 03/13/25 18:56 Dose: 324 mg Documented By: JUNE Hydralazine HCl (Hydralazine Hcl 25 Mg Tab) 25 mg PO NOW STA Stop: 03/14/25 00:06 Last Admin: 03/14/25 00:23 Dose: 25 mg Documented By: JUNE Ioversol (Optiray 320 125ml) 118 ml IV ONCE ONE Stop: 03/13/25 21:09 Last Admin: 03/13/25 21:09 Dose: 118 ml Documented By: CAMILLE Nitroglycerin (Nitroglycerin 2% Ointment 30gm Tube) 0.5 inch EXT NOW STA Stop: 03/13/25 18:46 Last Admin: 03/13/25 19:59 Dose: 0.5 inch Documented By: JUNE Oxycodone HCl (Oxycodone Hcl Ir 5 Mg Tab (Immediate Release)) 5 mg PO NOW STA Stop: 03/14/25 00:06 Last Admin: 03/14/25 00:23 Dose: 5 mg Documented By: JUNE Potassium Chloride (Potassium Chloride Crtab 20 Meq Tabcr) 20 meq PO NOW STA Stop: 03/13/25 22:43 Last Admin: 03/13/25 22:52 Dose: 20 meq Documented By: JUNE Potassium Chloride (Potassium Chloride Crtab 20 Meq Tabcr) 20 meq PO NOW STA Stop: 03/13/25 22:57 Last Admin: 03/13/25 23:27 Dose: Not Given Documented By: [facility] Imaging Data Radiologist's Impression: Chest X-Ray 03/13/25 18:34 EXAM: X-ray chest one-view portable CLINICAL HISTORY: Chest pain PRIORS: None TECHNIQUE: AP upright chest FINDINGS: Patient slightly rotated. The chest is well-expanded. No airspace consolidation, effusion or congestive changes. Heart size is top normal. No pneumothorax. Trachea is patent. Osseous structures demonstrate no acute abnormality. No radiopaque foreign body. IMPRESSION: No plain film evidence of an acute cardiopulmonary process. Electronically signed by Khushbu Mcdonald 03-13-2025 7:32 PM Chest CTA 03/13/25 19:52 Exam(s): CTA CHEST W/WO Contrast IV Amt: optiray 320 118ml EXAM: CT Angiography Chest Without and With Intravenous Contrast CLINICAL HISTORY: Reason for exam: left chest pain, hypertension. TECHNIQUE: Axial computed tomographic angiography images of the chest without and with intravenous contrast. CTDI is 26 mGy and DLP is 834 mGy-cm. Automated exposure control was utilized for the study. A dose lowering technique was utilized adhering to the principles of ALARA. MIP reconstructed images were created and reviewed. CONTRAST: Patient received optiray 320 118ml of IV contrast COMPARISON: August 15 2017 FINDINGS: Pulmonary arteries: The pulmonary arterial tree is well opacified with contrast. No pulmonary emboli are identified. Aorta: The thoracic aorta is nondilated. There is no aneurysm or dissection. Lungs: Lungs are well inflated and clear. No infiltrate or consolidation is seen. Pleural space: Unremarkable. No significant effusion. No pneumothorax. Heart: The heart is mildly enlarged. No pericardial effusion is seen. No evidence of RV dysfunction. Bones/joints: Mild osteophytosis throughout the mid to lower thoracic spine. No acute fracture or destructive bone lesion is seen. No dislocation. Soft tissues: Unremarkable. Lymph nodes: Unremarkable. No enlarged lymph nodes. IMPRESSION: 1. The thoracic aorta is nondilated. There is no aneurysm or dissection. 2. The pulmonary arterial tree is well opacified with contrast. No pulmonary emboli are identified. 3. The heart is mildly enlarged. No pericardial effusion is seen. 4. Lungs are well inflated and clear. No infiltrate or consolidation is seen. Electronically signed by: George Ness MD 03/13/25 22:22 PM Discharge Plan Visit Data Chief Complaint: Hypertension Stated Complaint: HIGH BP ED Provider: Derek Anderson Discharge Problem: Left-sided chest pain, Hypertension Patient Disposition: Home - Self-Care Condition: Good Forms Stand Alone Forms: [facility], Important Visit Information Prescriptions Prescriptions: No Action torsemide 20 mg tablet 20 mg PO QAM lisinopril 20 mg tablet 20 mg PO BID famotidine 40 mg tablet 40 mg PO HS hydralazine 25 mg tablet 25 mg PO BID pantoprazole 40 mg tablet,delayed release (DR/EC) 40 mg PO QAM atenolol 50 mg tablet 50 mg PO BID potassium chloride [Klor-Con M20] 20 mEq tablet,ER particles/crystals 20 meq PO DAILY ferrous sulfate [iron] 325 mg (65 mg iron) Tablet 325 mg PO .2-3XWK fluoxetine 10 mg capsule 10 mg PO QAM docusate sodium 100 mg Capsule 100 mg PO DAILY PRN (Reason: WHEN TAKE IRON SUPPLIMENT) lorazepam 1 mg tablet 1 mg PO HS PRN (Reason: Sleep) nitrofurantoin monohyd/m-cryst 100 mg capsule 100 mg PO BID Rx Instructions: STARTED 03/05/25 FOR 7 DAYS, PER PT "1 MORE PILL TO COMPLETE COURSE". Referrals Referrals: Natalie Collazo DO [Primary Care Provider] -
--- NOTE | 2025-03-13 19:32 | XRay Report ---
EXAM: X-ray chest one-view portable CLINICAL HISTORY: Chest pain PRIORS: None TECHNIQUE: AP upright chest FINDINGS: Patient slightly rotated. The chest is well-expanded. No airspace consolidation, effusion or congestive changes. Heart size is top normal. No pneumothorax. Trachea is patent. Osseous structures demonstrate no acute abnormality. No radiopaque foreign body. IMPRESSION: No plain film evidence of an acute cardiopulmonary process. Electronically signed by Khushbu Mcdonald 03-13-2025 7:32 PM
[2025-03-13] MEDS: NITROGLYCERIN 2% OINTMENT 30GM TUBE EXT STA (19:59)
[2025-03-13 20:24] LABS: Hematocrit (blood only) 36.1 % (37.0-47.0); Hemoglobin 10.9 g/dl (12.0-16.0); Immature Granulocytes # (auto) 0.01 K/uL (0.01-0.20); Immature Granulocytes % (auto) 0.1 %; Mean Corpuscular Hemoglobin 21.4 pg (25.0-34.0); Mean Corpuscular Volume 70.9 fL (80.0-100.0); Platelet Count 220 K/uL (130-400); RDW Standard Deviation 43.6 fL (36.4-46.3); Red Blood Count 5.09 M/uL (4.20-5.40); White Blood Count 8.25 K/ul (4.8-10.8)
[2025-03-13 20:43] LABS: Alanine Aminotransferase 19.0 U/L (7-52); Albumin Globulin Ratio 1.4 (0.9-2); Alkaline Phosphatase 63.0 U/L (34-104); Anion Gap 7.0 (3-11); Bilirubin,Total 0.3 mg/dl (0.2-1.0); Blood Urea Nitrogen 11.0 mg/dl (6-23); Calcium 9.4 mg/dl (8.6-10.3); Carbon Dioxide 31.0 mmol/L (21-32); Chloride 100.0 mmol/L (98-107); Creatinine Clr Calc Pharmacy 64.0 ml/min; Globulin 2.7 gm/dl (2.5-4.0); Glucose 88.0 mg/dl (70-99(Fasting)); Lipase 92.0 U/L (11-82); Potassium 3.2 mmol/L (3.5-5.1); Sodium 138.0 mmol/L (136-145); Total Protein 6.6 gm/dl (6.0-8.3)
[2025-03-13] MEDS: OPTIRAY 320 125ml IV ONE (21:09)
--- NOTE | 2025-03-13 22:23 | CT Scan Report ---
Exam(s): CTA CHEST W/WO Contrast IV Amt: optiray 320 118ml EXAM: CT Angiography Chest Without and With Intravenous Contrast CLINICAL HISTORY: Reason for exam: left chest pain, hypertension. TECHNIQUE: Axial computed tomographic angiography images of the chest without and with intravenous contrast. CTDI is 26 mGy and DLP is 834 mGy-cm. Automated exposure control was utilized for the study. A dose lowering technique was utilized adhering to the principles of ALARA. MIP reconstructed images were created and reviewed. CONTRAST: Patient received optiray 320 118ml of IV contrast COMPARISON: August 15 2017 FINDINGS: Pulmonary arteries: The pulmonary arterial tree is well opacified with contrast. No pulmonary emboli are identified. Aorta: The thoracic aorta is nondilated. There is no aneurysm or dissection. Lungs: Lungs are well inflated and clear. No infiltrate or consolidation is seen. Pleural space: Unremarkable. No significant effusion. No pneumothorax. Heart: The heart is mildly enlarged. No pericardial effusion is seen. No evidence of RV dysfunction. Bones/joints: Mild osteophytosis throughout the mid to lower thoracic spine. No acute fracture or destructive bone lesion is seen. No dislocation. Soft tissues: Unremarkable. Lymph nodes: Unremarkable. No enlarged lymph nodes. IMPRESSION: 1. The thoracic aorta is nondilated. There is no aneurysm or dissection. 2. The pulmonary arterial tree is well opacified with contrast. No pulmonary emboli are identified. 3. The heart is mildly enlarged. No pericardial effusion is seen. 4. Lungs are well inflated and clear. No infiltrate or consolidation is seen. Electronically signed by: George Ness MD 03/13/25 22:22 PM
[2025-03-13] MEDS: POTASSIUM CHLORIDE CRTAB 20 MEQ TABCR PO STA ×2 (22:52→23:27)
[2025-03-13 23:22] LABS: Partial Thromboplastin Time 27 Seconds (21-31)
[2025-03-13 23:51] LABS: Magnesium 2.2 mg/dl (1.7-2.4)
[2025-03-14] MEDS ORDERED: PROMETHAZINE 12.5 MG/50.5 ML BAG IV PRN (00:29)
[2025-03-14] MEDS ORDERED: LORazepam 0.5 MG TAB PO PRN (00:29)
[2025-03-14] MEDS ORDERED: MoRPHine SULFATE 4 MG/ML 1 ML CARP\\VIAL IV PRN (00:29)
--- NOTE | 2025-03-14 00:29 | History & Physical Report ---
Date of Service March 14, 2025 Assessment & Plan (1) Left-sided chest pain: Plan: Assessment and plan below following discussion of case with ED provider and reviewing patient history/pertinent normal/abnormal diagnostic test results. Atypical chest pain Multifactorial Uncontrolled hypertension, untreated sleep apnea possibly contributory Musculoskeletal component given reproducibility on exam Anxiety contributory chronic diastolic heart failure (EF 60%, TTE 2023), patient euvolemic mild TR pulmonary hypertension MACIEJ (CPAP intolerance) GERD, stable on regimen chronic anemia, hemoglobin at baseline ongoing tobacco abuse OBS Admit to PCU Analgesia Anxiolytic as needed Titrate home BP meds TTE Consider outpatient follow-up with sleep medicine to discuss CPAP retrial DVT prophylaxis. Lovenox subcu Text document was generated using [employer] voice recognition software. It may contain grammatical or spelling errors. Kindly contact undersigned for clarification of any documentation item in question. History of Present Illness Chief Complaint: Chest pain Primary Care Provider: Natalie Collazo, DO History obtained from patient and records. Medical history significant for chronic diastolic heart failure (EF 60%, TTE 2023), hypertension, mild TR, pulmonary hypertension, MACIEJ (CPAP intolerance), GERD, chronic anemia (baseline hemoglobin of 10), obesity, anxiety disorder, ongoing tobacco abuse. Last confinement 2021 for possible alcoholic pancreatitis. Patient woke up this morning with achy headache symptoms and waxing waning nonpleuritic left-sided chest pain nonradiating throughout the day. SBP 200s which is unusual for her. No cough or SOB. No abdominal pain. Compliant with home medications. No unusual exertion or lifting. Admits to some personal stressors. Chest pain not relieved by Nitropaste administration at the ER. 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 Allergies Allergy/AdvReac Type Severity Reaction Status Date / Time No Known Allergies Allergy Verified 03/13/25 19:18 Home Medications Medication Instructions Recorded Confirmed Type atenolol 50 mg tablet 50 mg PO BID 12/25/21 03/13/25 History famotidine 40 mg tablet 40 mg PO HS 12/25/21 03/13/25 History hydralazine 25 mg tablet 25 mg PO BID 12/25/21 03/13/25 History lisinopril 20 mg tablet 20 mg PO BID 12/25/21 03/13/25 History pantoprazole 40 mg tablet,delayed 40 mg PO QAM 12/25/21 03/13/25 History release torsemide 20 mg tablet 20 mg PO QAM 12/25/21 03/13/25 History potassium chloride 20 mEq 20 meq PO DAILY 12/28/21 03/13/25 History tablet,extended release(part/cryst) (Klor-Con M) docusate sodium 100 mg capsule 100 mg PO DAILY PRN WHEN TAKE IRON 06/12/24 03/13/25 History SUPPLIMENT ferrous sulfate 325 mg (65 mg 325 mg PO .2-3XWK 06/12/24 03/13/25 History iron) tablet (iron) fluoxetine 10 mg capsule 10 mg PO QAM 06/12/24 03/13/25 History lorazepam 1 mg tablet 1 mg PO HS PRN Sleep 03/13/25 03/13/25 History nitrofurantoin 100 mg PO BID 03/13/25 03/13/25 History monohydrate/macrocrystals 100 mg capsule Past Med/Surg History Problem List (Updated 03/13/25 @ 18:57 by Derek Anderson MD) Hypertension (Acute) Left-sided chest pain (Acute) Pilonidal disease Sleep apnea Sebaceous cyst Medical History Obesity Pulmonary hypertension Pancreatitis Anemia HTN (hypertension) Surgical History H/O colonoscopy History of cardiac catheterization History of delivery Family History Mother Diabetes Kidney disease Brother Hypertension Father Hypertension Grandfather (Maternal) Coronary heart disease Cancer Heart disease Grandfather (Paternal) Colorectal cancer Grandmother Cancer Diabetes Aunt Diabetes Uncle Diabetes Social History Smoking Status: Never smoker Tobacco Type: Cigarettes Age Started Using Tobacco: 17; Cigarettes Per Day: 7; Hx Alcohol Use: No Hx Substance Use: No Preferred Language: Divehi Communication Ability: Effective Visual Impairment: No Limitations Dry Kiln Loader Required: No Beliefs That Will Affect Care: None Current Living Situation: Spouse and Family current occupation: Media How many Children do You have: 1 Other Information That Helps Us Care for You: No Feels Safe at Home: Yes Safety Concerns: Feels Safe At This Time Diet: regular during the past year weight has: decreased > 10 lbs Assistive Devices: None Review of Systems Review of Systems: As per HPI, all other systems reviewed and negative Physical Exam Physical Exam: GENERAL: Comfortable, slightly anxious, obese, no respiratory distress SKIN: Normal color, warm HEENT: [place] palpebral conjunctivae, no ptosis, dry buccal mucosa NECK : Supple, short neck, no tenderness CHEST : CTA, left-sided chest wall tenderness HEART : RRR, no obvious murmurs ABDOMEN: Some distention, nontender EXTREMITIES : Bilateral LE swelling/tenderness, palpable pulses, no other conspicuous deformities noted NEUROLOGIC : Coherent, no facial asymmetry, no other gross focality Results & Data Results & Data Vital Signs (Past 12 Hours) Vital Signs Temp Pulse Resp BP Pulse Ox O2 Del Method 03/13/25 23:42 63 18 03/13/25 23:30 56 L 13 03/13/25 23:30 172/97 H 03/13/25 23:30 172/97 H 03/13/25 23:27 59 L 20 03/13/25 23:12 59 L 22 03/13/25 23:03 62 24 98 03/13/25 22:51 59 L 14 99 03/13/25 22:48 59 L 16 99 03/13/25 22:35 58 L 03/13/25 22:30 55 L 20 98 03/13/25 22:30 153/89 H 03/13/25 22:30 153/89 H 03/13/25 22:30 153/89 H 03/13/25 22:24 57 L 24 95 03/13/25 22:06 58 L 17 98 03/13/25 22:00 160/91 H 03/13/25 22:00 160/91 H 03/13/25 21:51 53 L 16 98 03/13/25 21:33 59 L 22 96 03/13/25 21:30 163/91 H 03/13/25 21:21 72 22 94 03/13/25 21:15 58 L 19 98 03/13/25 21:00 168/93 H 03/13/25 20:54 58 L 16 99 03/13/25 20:45 61 21 95 03/13/25 20:36 60 21 95 03/13/25 20:30 149/85 H 03/13/25 20:24 60 21 149/85 H 94 03/13/25 20:15 60 19 95 03/13/25 20:12 161/89 H 03/13/25 19:58 189/93 H 03/13/25 19:48 61 21 03/13/25 19:42 59 L 15 03/13/25 19:33 60 13 03/13/25 19:27 61 18 03/13/25 19:25 162/93 H 03/13/25 19:12 58 L 17 03/13/25 19:07 Room Air 03/13/25 19:03 58 L 16 03/13/25 18:51 54 L 16 03/13/25 18:41 55 L 03/13/25 18:26 36.6 C 60 20 204/83 H 98 Room Air Laboratory Results Laboratory Results WBC 8.25 K/ul (4.8-10.8) 03/13/25 19:50 RBC 5.09 M/uL (4.20-5.40) 03/13/25 19:50 Hgb 10.9 g/dl (12.0-16.0) L 03/13/25 19:50 Hct 36.1 % (37.0-47.0) L 03/13/25 19:50 MCV 70.9 fL (80.0-100.0) L 03/13/25 19:50 MCH 21.4 pg (25.0-34.0) L 03/13/25 19:50 MCHC 30.2 g/dL (32.0-36.0) L 03/13/25 19:50 RDW Std Deviation 43.6 fL (36.4-46.3) 03/13/25 19:50 RDW Coeff of Tomas 17.2 % (11.5-14.5) H 03/13/25 19:50 Plt Count 220 K/uL (130-400) 03/13/25 19:50 MPV 10.8 fL (9.4-12.4) 03/13/25 19:50 Immature Gran % (Auto) 0.1 % 03/13/25 19:50 Neut % (Auto) 41.8 % 03/13/25 19:50 Lymph % (Auto) 43.4 % 03/13/25 19:50 [place] % (Auto) 8.4 % 03/13/25 19:50 Eos % (Auto) 5.0 % 03/13/25 19:50 Baso % (Auto) 1.3 % 03/13/25 19:50 Neut # (Auto) 3.45 K/uL (1.40-6.50) 03/13/25 19:50 Lymph # (Auto) 3.58 K/uL (1.20-3.40) H 03/13/25 19:50 [place] # (Auto) 0.69 K/uL (0.11-0.59) H 03/13/25 19:50 Eos # (Auto) 0.41 K/uL (0.00-0.50) 03/13/25 19:50 Baso # (Auto) 0.11 K/uL (0.00-0.20) 03/13/25 19:50 Immature Gran # (Auto) 0.01 K/uL (0.01-0.20) 03/13/25 19:50 APTT 27 Seconds (21-31) 03/13/25 19:50 PTT Ratio 1.0 03/13/25 19:50 Sodium 138 mmol/L (136-145) 03/13/25 19:50 Potassium 3.2 mmol/L (3.5-5.1) L 03/13/25 19:50 Chloride 100 mmol/L (98-107) 03/13/25 19:50 Carbon Dioxide 31 mmol/L (21-32) 03/13/25 19:50 Anion Gap 7 (3-11) 03/13/25 19:50 BUN 11 mg/dl (6-23) 03/13/25 19:50 Creatinine 1.10 mg/dl (0.6-1.2) 03/13/25 19:50 Est Cr Clr Drug Dosing 64.0 ml/min 03/13/25 19:50 eGFR 61.98 03/13/25 19:50 BUN/Creatinine Ratio 10.0 (10-20) 03/13/25 19:50 Glucose 88 mg/dl (70-99(Fasting)) 03/13/25 19:50 Calcium 9.4 mg/dl (8.6-10.3) 03/13/25 19:50 Magnesium 2.2 mg/dl (1.7-2.4) 03/13/25 23:14 Total Bilirubin 0.3 mg/dl (0.2-1.0) 03/13/25 19:50 AST 13 U/L (13-39) 03/13/25 19:50 ALT 19 U/L (7-52) 03/13/25 19:50 Alkaline Phosphatase 63 U/L (34-104) 03/13/25 19:50 Troponin I High Sens 2.7 pg/ml (0-14) 03/13/25 23:14 Total Protein 6.6 gm/dl (6.0-8.3) 03/13/25 19:50 Albumin 3.9 gm/dl (3.4-5.0) 03/13/25 19:50 Globulin 2.7 gm/dl (2.5-4.0) 03/13/25 19:50 Albumin/Globulin Ratio 1.4 (0.9-2) 03/13/25 19:50 Lipase 92 U/L (11-82) H 03/13/25 19:50 Impressions Chest X-Ray 03/13/25 18:34 EXAM: X-ray chest one-view portable CLINICAL HISTORY: Chest pain PRIORS: None TECHNIQUE: AP upright chest FINDINGS: Patient slightly rotated. The chest is well-expanded. No airspace consolidation, effusion or congestive changes. Heart size is top normal. No pneumothorax. Trachea is patent. Osseous structures demonstrate no acute abnormality. No radiopaque foreign body. IMPRESSION: No plain film evidence of an acute cardiopulmonary process. Electronically signed by Khushbu Mcdonald 03-13-2025 7:32 PM Chest CTA 03/13/25 19:52 Exam(s): CTA CHEST W/WO Contrast IV Amt: optiray 320 118ml EXAM: CT Angiography Chest Without and With Intravenous Contrast CLINICAL HISTORY: Reason for exam: left chest pain, hypertension. TECHNIQUE: Axial computed tomographic angiography images of the chest without and with intravenous contrast. CTDI is 26 mGy and DLP is 834 mGy-cm. Automated exposure control was utilized for the study. A dose lowering technique was utilized adhering to the principles of ALARA. MIP reconstructed images were created and reviewed. CONTRAST: Patient received optiray 320 118ml of IV contrast COMPARISON: August 15 2017 FINDINGS: Pulmonary arteries: The pulmonary arterial tree is well opacified with contrast. No pulmonary emboli are identified. Aorta: The thoracic aorta is nondilated. There is no aneurysm or dissection. Lungs: Lungs are well inflated and clear. No infiltrate or consolidation is seen. Pleural space: Unremarkable. No significant effusion. No pneumothorax. Heart: The heart is mildly enlarged. No pericardial effusion is seen. No evidence of RV dysfunction. Bones/joints: Mild osteophytosis throughout the mid to lower thoracic spine. No acute fracture or destructive bone lesion is seen. No dislocation. Soft tissues: Unremarkable. Lymph nodes: Unremarkable. No enlarged lymph nodes. IMPRESSION: 1. The thoracic aorta is nondilated. There is no aneurysm or dissection. 2. The pulmonary arterial tree is well opacified with contrast. No pulmonary emboli are identified. 3. The heart is mildly enlarged. No pericardial effusion is seen. 4. Lungs are well inflated and clear. No infiltrate or consolidation is seen. Electronically signed by: George Ness MD 03/13/25 22:[address] head: Normal CT of the head without contrast. Diagnostic Findings EKG as per my interpretation :Rate 55, sinus bradycardia, normal axis, no ischemia
--- NOTE | 2025-03-14 00:58 | CT Scan Report ---
EXAM: CT head/brain wo con CLINICAL HISTORY: [place], htn crisis. TECHNIQUE: Axial non-contrast CT scan of the brain was performed from the skull base to the high parietal region. One of the following dose reduction techniques were utilized for this exam: Automated exposure control, adjustment of the mA and/or kV according to patient size, use of iterative reconstruction. COMPARISON: None. FINDINGS: Brain Parenchyma: Normal attenuation of the cerebral hemispheres, cerebellum, and brainstem. No evidence of acute infarct, hemorrhage, or mass effect. No abnormal areas of hypo- or hyperattenuation. Ventricular System: Ventricles are normal in size and configuration. No evidence of hydrocephalus or ventricular enlargement. Subarachnoid Spaces: Normal sulci and cisterns. No evidence of subarachnoid hemorrhage or extra-axial fluid collections. Cerebellum and Brainstem: No masses, lesions, or areas of abnormal density. Orbits: Normal appearance of the globes, optic nerves, and extraocular muscles. No evidence of orbital masses or abnormal density. Sinuses: Clear paranasal sinuses. No evidence of sinusitis or mucosal thickening. Mastoid Air Cells: Clear mastoid air cells. No evidence of mastoiditis. Skull: Normal skull morphology. IMPRESSION: Normal CT of the head without contrast. Electronically signed by Erasmo Connell 03-14-2025 12:58 AM
[2025-03-14] MEDS ORDERED: LORazepam 1 MG TAB PO PRN (01:19)
[2025-03-14] MEDS ORDERED: DOCUSATE SODIUM 100 MG CAP PO PRN (01:19)
[2025-03-14 02:57] VITALS: RESP 18
[2025-03-14 07:09] VITALS: PULSE 56
[2025-03-14 07:25] VITALS: TEMP 97.2; O2SAT 98
[2025-03-14] MEDS: ENOXAPARIN INJ 40 MG/0.4 ML SYR SQ SCH (07:41)
[2025-03-14] MEDS: ATENOLOL 50 MG TABLET PO SCH (07:44)
[2025-03-14] MEDS: ACETAMINOPHEN 500 MG TAB PO STA (10:32)
[2025-03-14] MEDS: ACETAMINOPHEN 500 MG TAB PO ONE (10:57)
--- NOTE | 2025-03-14 11:49 | Electrocardiogram Report ---
Test Reason : Blood Pressure : */* mmHG Vent. Rate : 59 BPM Atrial Rate : 59 BPM P-R Int : 172 ms QRS Dur : 80 ms QT Int : 482 ms P-R-T Axes : 14 11 25 degrees QTcB Int : 477 ms Sinus bradycardia Poor R wave progression, consider anterior MO vs. lead placement vs. LVH Otherwise normal ECG When compared with ECG of 14-Sep-2023 16:07, T wave inversion no longer evident in Anterior leads Confirmed by Guanakito Marina ([id number]) on 03/14/2025 11:48:59 AM Referred By: REFERRED SELF Confirmed By: Guanakito Marina
--- NOTE | 2025-03-14 13:19 | Discharge Summary ---
Date of Service March 14, 2025 Admission HPI Per Admitting Provider History obtained from patient and records. Medical history significant for chronic diastolic heart failure (EF 60%, TTE 2023), hypertension, mild TR, pulmonary hypertension, MACIEJ (CPAP intolerance), GERD, chronic anemia (baseline hemoglobin of 10), obesity, anxiety disorder, ongoing tobacco abuse. Last confinement 2021 for possible alcoholic pancreatitis. Patient woke up this morning with achy headache symptoms and waxing waning nonpleuritic left-sided chest pain nonradiating throughout the day. SBP 200s which is unusual for her. No cough or SOB. No abdominal pain. Compliant with home medications. No unusual exertion or lifting. Admits to some personal stressors. Chest pain not relieved by Nitropaste administration at the ER. 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 Principal Diagnosis Atypical chest pain Hypertensive urgency Discharge Exam GENERAL: Comfortable, slightly anxious, obese, no respiratory distress SKIN: Normal color, warm HEENT: [place] palpebral conjunctivae, no ptosis, dry buccal mucosa NECK : Supple, short neck, no tenderness CHEST : CTA, left-sided chest wall tenderness HEART : RRR, no obvious murmurs ABDOMEN: Some distention, nontender EXTREMITIES : Bilateral LE swelling/tenderness, palpable pulses, no other conspicuous deformities noted NEUROLOGIC : Coherent, no facial asymmetry, no other gross focality Discharge Data Allergies Allergy/AdvReac Type Severity Reaction Status Date / Time No Known Allergies Allergy Verified 03/13/25 19:18 Consultations 03/14/25 00:12 ED Decision to Admit Stat Ordered Studies 03/13/25 19:52 CT angio chest dissec wo/w con Stat 03/14/25 00:04 CT head/brain wo con Stat Hospital Course (1) Left-sided chest pain: Plan Patient presented to the hospital with headache, high blood pressure and left- sided chest discomfort. She was noted to be in hypertensive urgency on admission with blood pressure of 200/ 123. EKG showed normal sinus rhythm; no ST or T wave changes. High sensitive troponin was negative x 3. CTA chest did not show any pneumonia, PE. Her chest pain was reproducible on examination. Patient was admitted to medical floor; was started on her home antihypertensive which gradually improved her blood pressure. Discussion was done with the patient regarding a possible stress test; reported that she would like to follow-up with her outpatient provider and do it as outpatient. Also discussed of adding statin as primary prevention; would like to discuss with her primary care doctor on follow-up to do so. Her echocardiogram showed ejection fraction within normal limits; no valvular disease. Patient was discharged home with instruction to follow-up with PCP. Extensive discussion was done regarding home blood pressure monitoring so that dose titration of her blood pressure meds can be done as outpatient. Please note the above document was generated using voice recognition software. It may contain grammatical, syntax or spelling errors. Any formal questions or concerns about the content, text or information contained within the body of this dictation should be directly addressed to the provider for clarification Total Time Total Time Spent Total Time Spent (In Minutes): 45 Total Time Includes: Examination of the Patient, Discharge Planning, Medication Reconciliation, Communication With Other Providers and Other Discharge Plan Discharge Items Patient Disposition: Home - Self-Care Reason For Visit: CP Discharge Diagnosis: Hypertensive urgency Condition on Discharge: Good Activity: Resume your previous activity Non-emergency contact: Primary Care Provider Call non-emergency contact if: you have any medication questions and your symptoms worsen Follow-up/Referrals: Natalie Collazo, [Primary Care Provider] - Diet: Regular Addtl Attending Provider Instructions: You are admitted to the hospital with high blood pressure and chest pain. You underwent CT of the chest, EKG, echocardiogram during the hospitalization which did not show any significant abnormality. Your blood pressure also improved on your home medication. Please measure your blood pressure at home twice a day 1 hour after taking your medications. The blood pressure measurements should be done in a sitting position with both feet on the ground and arms rested. Please make a log of it and take it to your primary care doctor during follow-up. The dosing of the medications will be adjusted based on the readings. An appointment will be set up with your primary care doctor for follow-up sometime next week; discussed regarding stress test as outpatient. Pending Studies at Discharge: No Stand-Alone Forms: My [employer], Smoking Cessation Medications and DC Order Prescriptions: Continued torsemide 20 mg tablet 20 mg PO QAM lisinopril 20 mg tablet 20 mg PO BID famotidine 40 mg tablet 40 mg PO HS hydralazine 25 mg tablet 25 mg PO BID pantoprazole 40 mg tablet,delayed release (DR/EC) 40 mg PO QAM atenolol 50 mg tablet 50 mg PO BID potassium chloride [Klor-Con M20] 20 mEq tablet,ER particles/crystals 20 meq PO DAILY ferrous sulfate [iron] 325 mg (65 mg iron) Tablet 325 mg PO .2-3XWK fluoxetine 10 mg capsule 10 mg PO QAM docusate sodium 100 mg Capsule 100 mg PO DAILY PRN (Reason: WHEN TAKE IRON SUPPLIMENT) lorazepam 1 mg tablet 1 mg PO HS PRN (Reason: Sleep) nitrofurantoin monohyd/m-cryst 100 mg capsule 100 mg PO BID Rx Instructions: STARTED 03/05/25 FOR 7 DAYS, PER PT "1 MORE PILL TO COMPLETE COURSE". Admission Data Admit Date/Time: 03/14/25 01:18 Attending Provider: Giovani Chavarria Admit Provider: Mark Freeman Primary Care Provider: Natalie Collazo Other Providers: Mark Freeman Other Interventions: Discharge Summary Assessment (RN) Last Done: 03/14/25 13:36
[2025-03-14 14:12] VITALS: BP 131/85
[2025-03-14] MEDS ORDERED: FAMOTIDINE 40 MG TABLET PO SCH (21:00)
--- NOTE | 2025-03-15 11:18 | Electrocardiogram Report ---
Test Reason : Blood Pressure : */* mmHG Vent. Rate : 50 BPM Atrial Rate : 50 BPM P-R Int : 186 ms QRS Dur : 82 ms QT Int : 526 ms P-R-T Axes : 25 23 17 degrees QTcB Int : 479 ms Sinus bradycardia Abnormal ECG When compared with ECG of 13-Mar-2025 18:41, No significant change was found Confirmed by Guanakito Marina ([id number]) on 03/15/2025 11:18:14 AM Referred By: REFERRED SELF Confirmed By: Guanakito Marina
== END 2025-03-14 14:52 | disposition home or self-care (01) ==
LOC: ED 18:24 → 2S 18:24